=== PATIENT | female | born 1965 | race Caucasian/White ===

== ENCOUNTER 2020-06-13 00:37 | Inpatient (IN) | payer OTHER, MEDICAID ==
[~2020-06-13] VITALS: Ht 154.9 cm; Wt 76.2 kg
[2020-06-13 00:47] VITALS: BP 149/101
[2020-06-13 01:34] LABS: ABSOLUTE EOSINOPHILS 0.1 thou/uL (0.0-0.7); ABSOLUTE LYMPHOCYTES 0.8 thou/uL (0.8-5.3); ABSOLUTE MONOCYTES 0.3 thou/uL (0.0-1.2); ABSOLUTE NEUTROPHILS 2.4 thou/uL (1.6-8.1); BASOPHILS 0.5 %; EOSINOPHILS 1.8 %; HEMATOCRIT 32.8 % (37.0-47.0); LYMPHOCYTES 22.1 %; MCH 27.1 pg (26.0-34.0); MCHC 33.4 g/dL (28.0-37.0); MCV 81.1 fL (80.0-100.0); MONOCYTES 7.7 %; MPV 8.2 fl. (7.2-11.1); NUCLEATED RBCS 0 /100WBC; POLYS 67.9 %; RBC 4.05 mil/uL (4.20-5.00); RDW-CV 17.4 % (10.5-14.5); WBC 3.5 thou/uL (4.0-11.0)
[2020-06-13 01:38] LABS: PLATELET COUNT* 48 thou/uL (150-400)
[2020-06-13 01:42] LABS: URINE BILIRUBIN NEGATIVE (Negative); URINE BLOOD NEGATIVE (Negative); URINE CLARITY CLEAR; URINE COLOR YELLOW; URINE GLUCOSE-RANDOM 3+ (Negative); URINE KETONES NEGATIVE (Negative); URINE LEUKOCYTES-REFLEX NEGATIVE (Negative); URINE NITRITE-REFLEX NEGATIVE (Negative); URINE PROTEIN NEGATIVE (Negative); URINE SPECIFIC GRAVITY <= 1.005 (1.005-1.030); URINE UROBILINOGEN 0.2 E.U./dl (0.2-1.0)
[2020-06-13 01:46] LABS: CALCIUM 7.9 mg/dL (8.5-10.1); CREATININE 0.9 mg/dL (0.6-1.3)
[2020-06-13 01:47] LABS: INR 1.2; PROTIME 12.2 Seconds (9.20-11.50)
[2020-06-13 01:51] LABS: AMP/METHAMP Negative (Negative); BARBITURATES Negative (Negative); BENZODIAZEPINES POSITIVE (Negative); COCAINE Negative (Negative); METHADONE Negative (Negative); OPIATES POSITIVE (Negative); PCP Negative (Negative); THC Negative (Negative)
[2020-06-13 01:57] LABS: ALBUMIN 2.7 g/dL (3.4-5.0); TOTAL BILIRUBIN 0.6 mg/dL (<0.1-1.0); TOTAL PROTEIN 8.1 g/dL (6.4-8.2)
[2020-06-13] MEDS ORDERED: CYMBALTA60 MG PO (03:47)
[2020-06-13] MEDS ORDERED: SEROQUEL300 MG PO (03:47)
[2020-06-13] MEDS ORDERED: VALIUM10 MG PO (03:48)
[2020-06-13] MEDS ORDERED: AMBIEN 10 MG TA10 MG PO (03:48)
[2020-06-13] MEDS ORDERED: FLEXERIL PO (03:49)
[2020-06-13] MEDS ORDERED: DILAUDID PO ×2 (03:49→03:50)
[2020-06-13] MEDS ORDERED: REMERON15 M2 PO (03:50)
[2020-06-13] MEDS ORDERED: INSULIN (03:50)
[2020-06-13 05:20] VITALS: BP 117/69
[2020-06-13 06:00] VITALS: BP 110/54
[2020-06-13] MEDS ORDERED: LIDOCAINE HC28.35 GM (06:42)
--- NOTE | 2020-06-13 07:11 | NUR ---
Admit at 0555. She has multi abscesses on her bilat thighs and rt upper arm. Dr Longoria in ER lanced them and sent fluid specimens. She placed gauze wrap dressings on the wounds. She does have scabs and scars on bilat arms and legs. The botton of her feet were dark, like black in color. She said that it was dirt. She states that she does smoke cigarettes but doesn't drink or do any illegal drugs. Vitals were stable. She states that she lives with her and only wants him updated or called if there is an emergency. Meds were reconciled. ED MD called and order her NPO b/c CT scan showed bowel obstruction. Surgery consult called to Dr Garrison and he was notified of the consult.
[2020-06-13 07:35] VITALS: BP 110/90
[2020-06-13 16:00] VITALS: BP 140/59
--- NOTE | 2020-06-13 17:22 | NUR ---
PT REMAINED ALERT AND ORIENTED. PT REFUSED NG TUBE AND SUPPOSITORY. PT STATED THEY DID NOT WANT TO BATHE RIGHT NOW AND WOULD CALL OUT WHEN WANTING TO WASH UP. DRESSINGS CHANGED, WOUND CARE NURSE TO SEE TOMORROW. PICTURES IN CHART. PT HAD ONE BM THIS SHIFT. ABD DISTENDED AND PT C/O PAIN, MEDS GIVEN ORDERED. PT EDUCTAED ON AVOIDING NARCOTICS TO PREVENT BOWEL OBSTRUCTION TO GET WORSE, PT WOULD NOT LISTEN. PT STATES THEY DO NOT WANT THEIR HISTORY OF HEROIN USE TO BE GIVEN OUT, EDUCATED PT ON ONLY THOSE PERTINENT TO HER CARE WOULD KNOW TO HELP TREAT WOUNDS AND CONTINUE CARE. FALL RISK PRECAUTIONS IN PLACE. HOURLY ROUNDING COMPLETED. WILL CONTINUE TO MONITOR.
--- NOTE | 2020-06-13 19:19 | CON ---
[address] [address] CONSULTATION Name: BAUTISTA JIMÉNEZ Room: [address] IN .R.#: [id number] Admission: 06/13/20 Attend Phys: Hima Stinson Discharge: Date of : 63 Report #: [id number] THIS REPORT FOR: //name// cc: PATRICIA - No family physician/PCP PATRICIA - No family physician/PCP ~ THIS REPORT FOR: //name// CC: [facility] physician/PCP Hima Sotelo DICTATED BY: Rafaela Cortés TITLE EXAMINER DATE OF SERVICE: 06/13/2020 The patient has been seen at [facility] in the past and has not seen anyone for sometime. Please note at the time of this dictation, the patient was seen physically examined by myself. REASON FOR CONSULTATION: Cirrhosis of the liver. HISTORY OF PRESENT ILLNESS: This is a 54-year-old female who presented to the Emergency Room with wanting to have a wound check. She states that she fell a couple of weeks ago and was unable to get up. She said she drug herself through the yard giving her numerous abrasions. She was trying to clean them up by putting alcohol and now she has got some abscesses. They were spreading and got worse. The patient states that she went to [place] back in March for her heroin abuse and Dilaudid use. She gets pain. She sees the pain clinic doctor over in [place] in which she has been seeing on a regular basis, getting her pain medications for her back and knee pain. Prior to all of this, the patient states that she was taking large amounts of Tylenol and that is what they told her caused her liver disease. The patient states she has not used any heroin in over 3 weeks and she denies any alcohol abuse. She did state when she was at [facility] before, it sounds like they did a paracentesis and jodie off some fluid. She states she was not sent home on any diuretics or anything like that. She denies weight gain, but now she is having abdominal pain and her stomach feels bigger. The patient also states that she had a colonoscopy done at [facility] as well. We will need to obtain all of those records to help fill in the gaps in regarding to her history. The patient does not recall ever having an EGD and she denies any issues with acid reflux, but she does have some nausea and vomiting from time to time. ALLERGIES: NSAIDs, SEASONAL ALLERGIES, MELLARIL, BEE STINGS, AND THORAZINE. MEDICATIONS: From home include Cymbalta, Seroquel, Ambien, Valium, Flexeril, [place] [address] CONSULTATION Name: BAUTISTA JIMÉNEZ Room: [address] IN .R.#: [id number] Admission: 06/13/20 Attend Phys: Hima Stinson Discharge: Date of : 63 Report #: [id number] Dilaudid ER, Dilaudid, Remeron and she does do insulin. PAST MEDICAL HISTORY: Diabetes, COPD, cirrhosis, PTSD, bipolar, social anxiety. PAST SURGICAL HISTORY: Cholecystectomy. FAMILY HISTORY: Mother, breast cancer. SOCIAL HISTORY: She smokes 2 packs per day. Denies any alcohol use and no illegal drug use for the last 3 weeks and has only been heroin a couple of times. REVIEW OF SYSTEMS: Twelve-point review of systems is essentially negative except what is mentioned in the HPI. PHYSICAL EXAMINATION: VITAL SIGNS: Temperature 36.7, pulse 83, respirations 18, blood pressure 110/90. HEART: Regular rate and rhythm. LUNGS: Diminished with some expiratory wheezes. ABDOMEN: Distended, semi-firm with generalized tenderness noted throughout, multiple abrasions abscesses noted on the lower extremities bilaterally. IMAGING: CT shows cirrhosis, splenomegaly, proximal small bowel distended, questionable thickened, large amount of stool, questionable small-bowel obstruction. Abdominal x-ray revealed no abdominal obstruction, but a large amount of stool throughout her colon. LABORATORY DATA: Hemoglobin is 11, white count 3.5, and platelets 48. PT 12.2 and INR is 1.2. GFR is 65. Her LFTs are normal and lipase is normal. IMPRESSION: 1. Cirrhosis, etiology questionable, Tylenol abuse per patient. 2. Thrombocytopenia. 3. Abdominal pain. 4. Constipation. 5. Intermittent nausea and vomiting. 6. Long-term narcotic use. 7. History of heroin abuse. 8. Personal history of cervical cancer. 9. Family history of breast cancer. PLAN: 1. Ultrasound with Dopplers. 2. Medical records release from [facility], all regarding her colonoscopy and recent hospitalization. [address] [address] CONSULTATION Name: BAUTISTA JIMÉNEZ Room: [address] IN M.R.#: [id number] Admission: 06/13/20 Attend Phys: Hima Stinson Discharge: Date of : 63 Report #: [id number] 3. Dulcolax tablets, 4 tablets now. 4. Labs, acute hepatitis panel, EB, ASMA, AMA and AFP. 5. The patient will need an EGD secondary to cirrhosis to rule out esophageal varices. 6. The patient may possibly need based on being diabetic and appeared to have slow transient time that was noted on the CT. 7. Further recommendations to be made once the above have all been noted and Dr. Harkins has seen the patient later today. Thank you for allowing us to participate in this patient's care. Please do not hesitate to call with any questions in regard to this consult. <ELECTRONICALLY SIGNED> By: Remy Harkins DO 06/13/20 [id number] Harkins DO /nt
[2020-06-13 19:23] VITALS: BP 130/59
--- NOTE | 2020-06-13 19:50 | NUR ---
REFUSING TO TRANSFER TO TELE UNIT. DISCUSSED WHY IT IS IMPORTANT TO GO AND SHE REFUSED TRANSFER.
--- NOTE | 2020-06-13 20:07 | NUR ---
SENT A MESSAGE TO DR CHEN TO LET HER KNOW PATIENT REFUSES TRANSFER
--- NOTE | 2020-06-14 00:30 | NUR ---
Pt transferred to 221 @ 2205. Alert and oriented. Up ad yaima. New IV to [facility]. Pain meds given as ordered. Reassessment done prior to transfer. Will complete rest of interventions due tonight. Will continue to monitor.
--- NOTE | 2020-06-14 01:03 | NUR ---
Pt refused schld ativan. Pt also refused schld insulin, voicing that her Bg is less than 200 and so does not want to take any insulin. Will continue to monitor.
[2020-06-14 05:35] LABS: HEMATOCRIT 32.6 % (37.0-47.0); MCH 26.6 pg (26.0-34.0); MCHC 33.7 g/dL (28.0-37.0); MCV 78.9 fL (80.0-100.0); MPV 7.4 fl. (7.2-11.1); RBC 4.13 mil/uL (4.20-5.00); RDW-CV 17.3 % (10.5-14.5); WBC 3.2 thou/uL (4.0-11.0)
[2020-06-14 05:55] LABS: ALBUMIN 2.1 g/dL (3.4-5.0); CALCIUM 7.8 mg/dL (8.5-10.1); CREATININE 0.7 mg/dL (0.6-1.3); MAGNESIUM 1.5 mg/dL (1.8-2.4); POTASSIUM 3.8 mmol/L (3.5-5.1)
--- NOTE | 2020-06-14 06:17 | NUR ---
Pt slept well this shift. Pt refused shcld ativan and insulin for bg <200. PAin meds given x2 this shift. SR on the monitor. ISolation precaution for pending mrsa result. Call light within reach. Will continue to monitor.
[2020-06-14 07:08] LABS: HEPATITIS B SURFACE AG Negative (Negative)
[2020-06-14 07:20] VITALS: BP 164/94
--- NOTE | 2020-06-14 07:27 | CON ---
[address] [address] CONSULTATION Name: JESSYCHHAYASUNI Jacobo Room: [address] IN M.R.#: [id number] Admission: 06/13/20 Attend Phys: Hima Stinson Discharge: Date of : 63 Report #: [id number] THIS REPORT FOR: //name// cc: PATRICIA Christy family physician/PCP PATRICIA - Jaelyn family physician/PCP ~ THIS REPORT FOR: //name// CC: PATRICIA physician/PCP Hima Sotelo DATE OF SERVICE: 06/13/2020 INFECTIOUS DISEASE CONSULTATION ATTENDING PHYSICIAN: Dr. Day. REASON FOR EVALUATION: Multiple abscesses involving the bilateral lower extremities including the thighs primarily. HISTORY OF PRESENT ILLNESS: Chart reviewed, patient examined. This is a 54-year-old woman with known polysubstance abuse including narcotics, who has known history of diabetes mellitus, confirmed to have cirrhosis of the liver as well as some psychological disease, who says she fell in her yard roughly 3 weeks ago. She was unable to lift herself up. She dragged herself causing some abrasive injury. She treated the wounds with rubbing alcohol. She did manipulate them, became evident to her that it was increasingly inflamed, very painful. Does have a history of heroin abuse. This prompted her to relapse. She was evaluated in the Emergency Room, was found to have pancytopenia. Urinalysis was otherwise unremarkable. COVID testing was negative. Glucose was 399. Lactic acid was in normal range at 1.3. CT of the pelvis did confirm the cirrhosis with marked hepatosplenomegaly. No abscess or free air. She was dosed with ceftriaxone and vancomycin. ALLERGIES: LISTED TO NONSTEROIDALS, THORAZINE, MELLARIL. CURRENT MEDICATIONS: Include enoxaparin, mirtazapine, quetiapine, vancomycin, famotidine p.r.n., ondansetron, duloxetine, ceftriaxone, cyclobenzaprine, zolpidem, oxycodone. PAST MEDICAL HISTORY: As described above. Diabetes mellitus, COPD, cirrhosis, PTSD, bipolar, social anxiety, hepatitis C. SOCIAL HISTORY: Smokes 2 packs a day for the last 35 years. Heroin use historically. No ethanol. FAMILY HISTORY: [place] [address] CONSULTATION Name: BAUTISTA JIMÉNEZ Room: [address]#: [id number] Admission: 06/13/20 Attend Phys: Hima Stinson Discharge: Date of : 63 Report #: [id number] REVIEW OF SYSTEMS: As above. Denies significant changes in weight. She has had mild anorexia. Denies any fevers or chills. No GI related complaints, above her baseline. PHYSICAL EXAMINATION: GENERAL: She is chronically ill appearing, undernourished. VITAL SIGNS: Temperature 98, pulse 83, respirations 18, blood pressure is 110/90. SKIN: Warm, dry. No rashes. HEENT: Disheveled. Normocephalic. Extraocular muscles are intact. NECK: Supple. LUNGS: Diminished breath sounds overall. Few scattered crackles at the bases. HEART: Regular. I do not appreciate a murmur. ABDOMEN: Mildly obese, soft, nontender. EXTREMITIES: Bilateral thighs have multiple areas of superficial ulcerations and moderate degree of inflammation associated with them. There is some sanguineous type drainage. Distal has changes suggestive of venous stasis insufficiency with dermatitis, some moderate degree of edema overall. GENITALIA AND RECTAL: Deferred. LABORATORY DATA: CBC: White count of 3.5, H and H 11.0 and 32.8 and platelets of 48. Urinalysis unremarkable. COVID testing was negative. Urine drug screen positive for opioids and benzodiazepines. PT 12.2, INR 1.2. Electrolytes: Sodium 130, potassium 4.0, chloride 95, bicarbonate is 30, anion gap of 5, BUN and creatinine 7 and 0.9, glucose of 399. AST of 18, albumin of 2.7, total protein of 8.1. LFTs unremarkable. Estimated GFR of 65. Lactic acid of 1.3. Chest x-ray; interstitial lung markings suggest chronic scarring, mild vascular congestion potentially. No evidence of pleural effusions. CT scan as noted above. Hepatosplenomegaly, nodular surface of liver consistent with cirrhosis, marked portal vein prominence consistent with elevated portal hypertension. ASSESSMENT: Bilateral anterior thighs with multiple ulcers and abrased areas, likely secondarily infected. Certainly, she dragged herself across the lawn, this could be ____ gram negatives as well. We will continue combination therapy, wound care as prescribed. We will see how she does clinically over the course of next 24-48 hours. There are cultures pending of the blood and abscess. <ELECTRONICALLY SIGNED> By: Bladimir Jiménez MD 06/14/20 0727 [id number] Jiménez MD /nt
--- NOTE | 2020-06-14 10:53 | NUR ---
WOUND NURSE: PATIENT SEEN TO ADDRESS MULTIPLE ABSCESS ON BILATERAL THIGHS AND RIGHT UPPER ARM DUE TO INJECTING ILLICIT DRUGS. ALL WERE CLEANSED WITH WOUND CLEANSER AND GAUZE. ALL OPEN WOUNDS WERE PACKED WITH SILVERMED MOISTENED PLAIN PACKING RIBBOON AND THIGHS COVERED WITH ABD'S AND SECURED WITH TAPE. RIGHT UPPER ARM WAS COVERED WITH 4X4'S UNDER ABD, THEN WRAPPED WITH KERLEX AND SECURED WITH TAPE. THIS WAS TOLERATED WELL BY THE PATIENT. ALDA WAS PROVIDED INSTRUCTION REGARDING MANAGEMENT OF WOUNDS, MEASURES TO PROMOTE HEALING, AND SEEKING ATTENTION TO ADDRESS ILLICIT DRUG USE. PATIENT STATES SHE UNDERSTANDS.
[2020-06-14 12:00] VITALS: BP 170/94
--- NOTE | 2020-06-14 13:39 | NUR ---
WOUND NURSE: I CALLED DR. CHACON'S OFFICE REGARDING INTACT ABSCESS ON THE RIGHT DELTOID MEASURING APPROX 5 CM DIAMETER AND IS FEELS FLUCTUANT. AUTOMOTIVE SALESPERSON TOOK THE MESSSAGE. I PROVIDED MY CALL BACK PHONE NUMBER. I ASKED IF THEY COULD ADDRESS THIS SITE NEXT TIME THEY FOLLOW UP WITH THE PATIENT.
[2020-06-14 16:00] VITALS: BP 177/96
--- NOTE | 2020-06-14 16:06 | NUR ---
Pt lives at home with her . Pt has hx of substance abuse. Pt has cane. Pending dc planning, surgery to assess. SW to remain available to assist with safe dc planning if needs arise.
[2020-06-14 20:00] VITALS: BP 175/105
[2020-06-15] VITALS: BP 114/61; BP 157/83
--- NOTE | 2020-06-15 03:20 | NUR ---
PATIENT HAS REMAINED ALERT AND ORIENTED X 4 THROUGHOUT THE SHIFT AND RESTING AT INTERVALS ON HOURLY ROUNDS. UP INDEPENDENTLY IN THE ROOM TO BR. STATES HAS HAD LOOSE BM'S. HAS REUSED REGLAN THIS SHIFT. PAIN MEDICATION PER JAN. IV RESTARTED DUE TO INFILTRATION PREVIOUS SITE. REFUSING IV LORAZEPAM. ALSO REFUSING SLIDING SCALE INSULIN. DRESSINGS DRY AND INTACT TO RIGHT UPPER ARM AND BILAT THIGHS. IVF'S AND ANTIBIOTICS PER ORDER. SR ON THE MONITOR. VITALS WITH HYPERTENSION AND LOW-GRADE TEMPERATURE. PLEASANT AND CONVERSATIONAL. NO S/S WITHDRAWL. CONTACT ISOLATION FOR PENDING CULTURES. CONTINUE TO MONITOR.
[2020-06-15 04:00] VITALS: BP 157/90
[2020-06-15 04:33] LABS: HEMATOCRIT 29.8 % (37.0-47.0); HEMOGLOBIN 10.2 gm/dL (12.0-15.0); MCHC 34.1 g/dL (28.0-37.0); RBC 3.77 mil/uL (4.20-5.00); RDW-CV 17.2 % (10.5-14.5); WBC 2.6 thou/uL (4.0-11.0)
[2020-06-15 04:55] LABS: CALCIUM 7.6 mg/dL (8.5-10.1); CREATININE 0.9 mg/dL (0.6-1.3); MAGNESIUM 1.6 mg/dL (1.8-2.4); POTASSIUM 3.7 mmol/L (3.5-5.1); TOTAL BILIRUBIN 0.7 mg/dL (<0.1-1.0); TOTAL PROTEIN 6.7 g/dL (6.4-8.2)
--- NOTE | 2020-06-15 06:36 | NUR ---
CRITICAL PLATELETS RESULT TO PHYSICIAN. NO NEW ORDERS CURRENTLY. MAGNESIUM REPLACEMENT INITIATED. CONTINUE REFUSAL OF REGLAN DUE TO DIARRHEA. NO OTHER CHANGES FROM PREVIOUS ENTRY.
[2020-06-15 08:00] VITALS: BP 166/93
[2020-06-15 12:22] VITALS: BP 148/86
[2020-06-15 16:25] VITALS: BP 150/90
[2020-06-15 20:50] VITALS: BP 168/94
[2020-06-16] VITALS (7 sets, daily range): BP systolic 105–166; BP diastolic 67–97
--- NOTE | 2020-06-16 05:11 | NUR ---
PT SLEPT MOST OF SHIFT. ASSESSMENT DOCUMENTED. MEDS GIVEN PER E-MAR. NEW IV STARTED THIS SHIFT. PAIN MEDS GIVEN PER E-MAR WITH RELIEF. DRESSINGS REMAINED C/D/I. PT UP AD WATSON IN ROOM. WILL CONTINUE WITH PLAN OF CARE.
--- NOTE | 2020-06-16 15:16 | NUR ---
ASSUMED PT CARE AT 0730, PT RESTING IN BED, AOX4 AND C/O BACK AND KNEE PAIN, TREATED W/ PRN PAIN MEDS W/ NO RELIEF. PT CONTINUED TO C/O PAIN THROUGHOUT SHIFT, PAIN MEDS GIVEN CHARTED. PT WORKED W/ PT AND OT TODAY AND GOT CLEANED UP FOR THE MOST PART. PT GOAL IS TO HAVE DRESSINGS ON ABCESSES CHANGED AND WORK ON PAIN MANAGEMENT. AM ASSESSMENT CHARTED, MEDS PER MAR, HOURLY ROUNDING OBSERVED, PT UP AD WATSON, WILL CONTINUE POC.
--- NOTE | 2020-06-16 18:51 | NUR ---
NO ACUTE CHANGES THROUGHOUT SHIFT, DRESSINGS CHANGED TO BILAT OUTER THIGHS AND RT UPPER ARM, OPEN ABCESSES RE-PACKED SUGGESTED. PT WORKED W/ PT/OT TODAY AND GOT UP TO BATHROOM MULTIPLE TIMES. MEDS PER MAR, HOURLY ROUNDING OBSERVED, PT CONTINUED TO HAVE PAIN TREATED W/ PRN MEDS, WILL CONTINUE POC.
[2020-06-17 04:00] VITALS: BP 127/76
--- NOTE | 2020-06-17 04:40 | NUR ---
No acute event this shift. Pt complains of back pain. Meds given per jan. Antibiotic given as ordered. Hourly rounding. Will continue to monitor.
[2020-06-17 04:48] LABS: HEMATOCRIT 30.3 % (37.0-47.0); HEMOGLOBIN 10.3 gm/dL (12.0-15.0); MCH 27.2 pg (26.0-34.0); MCV 80.2 fL (80.0-100.0); MPV 8.4 fl. (7.2-11.1); RBC 3.78 mil/uL (4.20-5.00); RDW-CV 17.7 % (10.5-14.5)
[2020-06-17 05:13] LABS: WBC 1.7 thou/uL (4.0-11.0)
[2020-06-17 05:23] LABS: ALBUMIN 2.2 g/dL (3.4-5.0); CALCIUM 7.8 mg/dL (8.5-10.1); CREATININE 0.7 mg/dL (0.6-1.3); POTASSIUM 3.3 mmol/L (3.5-5.1); TOTAL BILIRUBIN 0.4 mg/dL (<0.1-1.0); TOTAL PROTEIN 6.7 g/dL (6.4-8.2)
[2020-06-17 08:00] VITALS: BP 126/84
--- NOTE | 2020-06-17 10:41 | NUR ---
ASSUMED PT CARE AT 0730, PT RESTING IN BED, AOX4 AND C/O BACK PAIN TREATED W/ PRN DILAUDID AND OXYCODONE. PT FREQUENTLY C/O PAIN AND FREQUENTLY REMINDED OF WHEN SHE CAN HAVE PAIN MEDS. PT POTASSIUM LOW THIS MORNING, 3.3, BEING REPLACED PER Matt'ANTONI PROTOCOL. PT GOAL IS POTASSIUM REPLACEMENT AND PAIN MANAGEMENT. AM ASSESSMENT CHARTED, MEDS PER MAR, HOURLY ROUNDING OBSERVED, PT UP AD WATSON, WILL CONTINUE POC.
[2020-06-17 12:16] VITALS: BP 128/75
[2020-06-17 14:07] LABS: ANA INTERPRETATION Negative (Negative)
--- NOTE | 2020-06-17 17:39 | NUR ---
NO ACUTE CHANGES THROUGHOUT SHIFT, PT HAD FURTHER C/O PAIN, TREATED W/ PRN OXYCODONE AND DILAUDID. PT REFUSED TO LET ME CHANGE DRESSINGS THIS MORNING AND WANTED TO WAIT UNTIL AFTER SHE HAD AFTERNOON DOSE OF DILAUDID, DRESSINGS NOTED TO HAVE MULTIPLE SOILED SPOTS FROM WOUND DRAINAGE. PT HAD POTASSIUM REPLACED AND RE-DRAW DONE, POTASSIUM WNL NOW. MEDS PER JAN, HOURLY ROUNDING OBSERVED, CALL LIGHT W/IN REACH, WILL CONTINUE POC.
[2020-06-17 19:35] VITALS: BP 136/83
[2020-06-18 00:30] VITALS: BP 130/64
--- NOTE | 2020-06-18 00:44 | NUR ---
ASSUMED CARE OF PT AT 1900. PT IS ALERT AND ORIENTED. VSS. PERRLA. PT REPORTS ONGOING PAIN. PT REQUESTING DILAUDID. PT HAS MULTIPLE WOUNDS FROM SHOOTING HEROIN INTO HER MUSCLES. PT ADMITS TO HEROIN ABUSE. PT IS SLEEPING QUIETLY IN BED. RESPIRATIONS ARE EVEN AND NONLABORED. WILL CONTINUE TO MONITOR PT.
[2020-06-18 07:30] VITALS: BP 140/86
[2020-06-18 16:00] VITALS: BP 106/71
[2020-06-18 20:10] VITALS: BP 153/81
[2020-06-19 04:30] VITALS: BP 146/86
[2020-06-19 06:12] LABS: CREATININE 0.9 mg/dL (0.6-1.3); MAGNESIUM 1.6 mg/dL (1.8-2.4); POTASSIUM 4.1 mmol/L (3.5-5.1)
[2020-06-19 07:30] VITALS: BP 124/75
[2020-06-19 15:21] LABS: INR 1.2; PROTIME 12.7 Seconds (9.20-11.50)
[2020-06-19 16:00] VITALS: BP 110/79
--- NOTE | 2020-06-19 19:13 | NUR ---
PATIENTS BROUGHT HER HOME PRESCRIPTION BOTTLE OF DILAUDID TODAY. PATIENT REPORTED THAT HER BOTTLE WAS EMPTY AND SHE WAS 'SHOWING THE DR HER DOSE OF DILAUDID' THE ENTIRE SCENARIO SEEMED OFF AND UNEASY AFTER THE PATIENTS SPOUSE LEFT. SECURITY AND CLINICAL NUTRITION MANAGER NOTIFIED. PATIENT WAS CONFRONTED ABOUT THE SUSPICIOUSNESS OF PAIN MEDICATION BEING BROUGHT IN BY HER AND STAFF PROCEEDED TO GO THROUGH HER BELONGINGS. HYDROCODONE WAS FOUND IN A MARKED 'ELIQUIS' BOTTLE AND TAKEN BY SECURITY.
[2020-06-19 19:40] VITALS: BP 138/83
[2020-06-19 23:55] VITALS: BP 121/79
--- NOTE | 2020-06-20 05:43 | NUR ---
PATIENT PROGRESSING TOWARDS GOALS: PAIN MANAGED WITH MEDICATION PER MAR AND RELAXATION TECHNIQUES. PATIENT OBSERVED SLEEPING MOST OF SHIFT. CALL LIGHT WITHIN REACH
[2020-06-20 05:45] LABS: HEMATOCRIT 29.9 % (37.0-47.0); MCH 26.8 pg (26.0-34.0); MCHC 33.4 g/dL (28.0-37.0); MCV 80.2 fL (80.0-100.0); MPV 8.1 fl. (7.2-11.1); RBC 3.73 mil/uL (4.20-5.00); RDW-CV 17.2 % (10.5-14.5)
[2020-06-20 06:06] LABS: ALBUMIN 2.5 g/dL (3.4-5.0); CALCIUM 7.8 mg/dL (8.5-10.1); MAGNESIUM 1.7 mg/dL (1.8-2.4); POTASSIUM 4.2 mmol/L (3.5-5.1); TOTAL BILIRUBIN 0.5 mg/dL (<0.1-1.0); TOTAL PROTEIN 7.5 g/dL (6.4-8.2)
[2020-06-20 06:07] LABS: WBC 1.7 thou/uL (4.0-11.0)
--- NOTE | 2020-06-20 06:21 | NUR ---
CRITICALLY LOW PLATELETS- ORDER ACKNOWLEDGED TO TRANSFUSE PLATELETS PER DR. WEIR. LAB CALLED BY THIS RN, LAB REPORTS THAT [facility] WILL BE READY IN APPROX ONE HOUR AND WILL CALL WHEN IT IS READY.
[2020-06-20 08:30] VITALS: BP 114/64
[2020-06-20 09:15] VITALS: BP 132/75; BP 140/70
--- NOTE | 2020-06-20 10:37 | NUR ---
DISCUSSED ADDICTION WITH PT. SHE STATES SHE REALIZES SHE HAS A PROBLEM BUT "NEEDS THE PILLS AND HEROIN TO GIVE ME ENERGY TO DO STUFF AROUND THE HOUSE". PT STATES SHE "SHOOTS IN THE MUSCLE NOT IV". THIS IS EVIDENCED BY VARIOUS HARDENED AREAS AND ABSCESSES UNDER THE SKIN. PT RECEPTIVE TO METHADONE TREATMENT. PT GIVEN INFORMATION ON METHADONE CLINICS IN THE AREA. SHE STATES SHE GOES TO DR GOLDBERG IN [place]
--- NOTE | 2020-06-20 11:30 | NUR ---
PT BACK FROM [facility]-SHE STATES THEY "DIDNT HAVE TO DO THE PARACENTESIS"
--- NOTE | 2020-06-20 11:32 | NUR ---
Pt continues on IV abx, not going to dc on IVs. SW spoke with RN who is going to talk with pt pain management doctor for continuation of care and RN providing pt with the detailed information for methadone clinic. SW to remain available to assist with any other dc planning needs if they arise, pt may not be appropriate for HH but will arrange if this changes.
[2020-06-20] MEDS ORDERED: NOVOLIN N100 UNIT/3 SUBQ (14:12)
--- NOTE | 2020-06-20 14:20 | NUR ---
CALLED PT'S PHARMACY TO VERIFY HOME DOSES OF DILAUDID THAT PT PROVIDED. PRESCRIBER IS DR LYNN IN [facility] . CALLED AND SPOKE TO DR LYNN'S OFFICE TO INFORM THEM OF PT'S HEROIN ABUSE PER DR WEIR REQUEST OVER THE WEEKEND. THE OFFICE ASKED FOR RECORDS TO BE FAXED FOR CONTINUTY OF CARE HE PRESCRIBES DILAUDID
[2020-06-20 16:07] VITALS: BP 132/81
--- NOTE | 2020-06-20 17:00 | NUR ---
PT UP IN ROOM WITH STEADY GAIT. PT OUT TO DESK FREQUENTLY ASKING FOR PAIN MEDS OR OTHER VARIOUS NEEDS. LIMITS SET WITH PT TO ANSWER CALL LIGHT. PAIN MEDS GIVEN ORDERED. INSTRUCTED PT THAT DR WILL NOT BE PAGED FOR ADDITIONAL PAIN MEDS IT HAS BEEN PREVIOUSLY DISCUSSED. WOUND CARE PERFORMED.
[2020-06-20 18:24] VITALS: BP 124/78
[2020-06-20 19:07] LABS: HCV QUANT BY PCR 2510000 IU/mL (())
[2020-06-20 22:05] VITALS: BP 133/87
--- NOTE | 2020-06-21 07:14 | NUR ---
PATIENT HAS SLEPT OFF AND ON DURING THE NIGHT. VSS ON RA. MEDICATIONS GIVEN ORDERED AND CHARTED. PATIENT AMBULATING OFF AND ON IN THE HALLS. DRESSINGS CHANGED. IV IN RIGHT HAND-SL. IV ABT GIVEN WITHOUT ANY ADVERSE SIDE EFFECTS NOTED. PATIENT INSTRUCTED TO USE CALL LIGHT WHEN NEEDING ASSISTANCE. HOURLY ROUNDS MADE. WILL CONTINUE WITH PLAN OF CARE AND NURSING TO MONITOR.
--- NOTE | 2020-06-21 09:13 | NUR ---
CM INFORMED THAT [facility] DIRECTOR MEDICARE SALES WILL COME TO THE HOSPITAL TO SEE AND ASSESS FOR HOSPICE. CM WILL REMAIN AVAILABLE TO ASSIST AND FOLLOW NEEDED.
[2020-06-21] MEDS ORDERED: SPIRONOLACTONE25 MG PO (12:15)
[2020-06-21] MEDS ORDERED: AUGMENTIN 875-1 EACH PO (12:18)
[2020-06-21] MEDS ORDERED: DILAUDID 2 MG TA2 MG PO (12:18)
[2020-06-21 13:27] VITALS: BP 133/87
[2020-06-21 14:49] VITALS: BP 133/87
--- NOTE | 2020-06-21 14:59 | NUR ---
PATIENT HAD ALL HER WOUND CARE DONE PRIOR TO DISCHARGE. SHE HAD ALL HER BELONGINGS RETURNED FROM SECURITY. I EXPLAINED ALL DISCHARGE INSTRUCTIONS TO PATIENT WENT OVER ALL MEDICATIONS AND PROVIDED A EDUCATIONAL HANDOUT ON HER NEW MEDICATION. I ALSO INSTRUCTED HER ON HER DIABETIC DIET AND TO WATCH THE SODIUM LEVEL IN HER FOODS AND NOT TO GO OVER 2 GRAMS OF SODIUM. SHE VERBALIZED UNDERSTANDING OF ALL DISCHARGE INSRUCTIONS. THE HOSPITAL PROVIDED HER WITH A CAB VOUCHER AND SOME CLOTHING TO WEAR HOME. I REMOVED HER IV WITH THE CANNULA INTACT. NO DISTRESS NOTED. AND SHE WAITED UNTIL AFTER HER 1425 DOSE OF DILAUDID BEFORE SHE WOULD LEAVE.
== END 2020-06-21 15:03 | disposition hospice, home (50) | DRG 854 ==
LOC: M.ERS 00:37 → M.TBA-ER 03:54 → M.2W 03:54 → M.ORTHSURG 03:54 → M.2W 20:30 → M.ORTHSURG 21:00 → M.2W 21:57 → M.ORTHSURG 06-20 17:55
PROVIDERS: Emergency Medicine; Internal Medicine; Nurse Practitioner Adult Health; ADMIT Family Medicine; ATTEND Internal Medicine
PROC: 0J9M0ZZ Drainage of Left Upper Leg Subcutaneous Tissue and Fascia, Open Approach (ICD-10-PCS; 2020-06-13)
PROC: 0J9L0ZZ Drainage of Right Upper Leg Subcutaneous Tissue and Fascia, Open Approach (ICD-10-PCS; 2020-06-13)
PROC: 0J9D0ZZ Drainage of Right Upper Arm Subcutaneous Tissue and Fascia, Open Approach (ICD-10-PCS; 2020-06-13)
PROC: 30233R1 Transfusion of Nonautologous Platelets into Peripheral Vein, Percutaneous Approach (ICD-10-PCS; principal; 2020-06-20)
DX: A41.9 Sepsis, unspecified organism (principal); E44.0 Moderate protein-calorie malnutrition; L03.116 Cellulitis of left lower limb; L03.115 Cellulitis of right lower limb; K56.600 Partial intestinal obstruction, unspecified as to cause; D61.818 Other pancytopenia; N17.9 Acute kidney failure, unspecified; K76.6 Portal hypertension; R18.8 Other ascites; K56.7 Ileus, unspecified; L02.413 Cutaneous abscess of right upper limb; L02.416 Cutaneous abscess of left lower limb; L02.415 Cutaneous abscess of right lower limb; L97.129 Non-pressure chronic ulcer of left thigh with unspecified severity; L97.119 Non-pressure chronic ulcer of right thigh with unspecified severity; F31.9 Bipolar disorder, unspecified; F43.10 Post-traumatic stress disorder, unspecified; F41.9 Anxiety disorder, unspecified; E11.65 Type 2 diabetes mellitus with hyperglycemia; F17.210 Nicotine dependence, cigarettes, uncomplicated; D69.6 Thrombocytopenia, unspecified; K74.69 Other cirrhosis of liver; G89.29 Other chronic pain; B19.20 Unspecified viral hepatitis C without hepatic coma; S70.312A Abrasion, left thigh, initial encounter; S70.311A Abrasion, right thigh, initial encounter; W19.XXXA Unspecified fall, initial encounter; J44.9 Chronic obstructive pulmonary disease, unspecified; F12.10 Cannabis abuse, uncomplicated; R16.2 Hepatomegaly with splenomegaly, not elsewhere classified; K72.90 Hepatic failure, unspecified without coma; B95.2 Enterococcus as the cause of diseases classified elsewhere; Y93.89 Activity, other specified; Y92.89 Other specified places as the place of occurrence of the external cause; Y99.8 Other external cause status; Z79.4 Long term (current) use of insulin; Z79.899 Other long term (current) drug therapy; Z88.8 Allergy status to other drugs, medicaments and biological substances; Z91.030 Bee allergy status; Z90.49 Acquired absence of other specified parts of digestive tract; Z85.41 Personal history of malignant neoplasm of cervix uteri; Z68.31 Body mass index [BMI] 31.0-31.9, adult; Z03.818 Encounter for observation for suspected exposure to other biological agents ruled out

== ENCOUNTER 2020-09-12 11:05 | Inpatient (IN) | payer OTHER, MEDICAID ==
[~2020-09-12] VITALS: Ht 154.9 cm; Wt 68.0 kg
--- NOTE | ~2020-09-12 | CON ---
[address] [address] CONSULTATION Name: BAUTISTA JIMÉNEZ Room: [address] IN .R.#: [id number] Admission: 09/12/20 Attend Phys: Tim Bolanos, Discharge: Date of : 63 Report #: [id number] THIS REPORT FOR: //name// cc: PATRICIA - No family physician/PCP PATRICIA - No family physician/PCP ~ THIS REPORT FOR: //name// DATE OF SERVICE: 09/13/2020 The patient does not have a PCP. Please note at the time of this dictation, the patient was seen and physically examined by myself. REASON FOR CONSULTATION: End-stage liver disease. HISTORY OF PRESENT ILLNESS: This is a 55-year-old homeless female that presents to the Emergency Room with ongoing right upper quadrant pain that has been increasing over the last several days. She states that her abdomen has gotten bigger and it has caused her more pain and a little bit of more shortness of breath. On CT, it shows minimal amount of ascites; however, it does show a very large 0.7 cm right adnexal mass. The patient has been to [facility] most recently for the same problem. She is wanting to get help to get a referral or admitted to a prison, so she can have a place to stay. The patient has not been using any insulin either for the last several weeks because she has not had any. Blood sugars on admission is 400-500. The patient also has been seeing someone at a pain center to help with her pain medications as well. ALLERGIES: NONSTEROIDALS. MELLARIL, SEASONAL ALLERGIES, THORAZINE AND BEE STINGS. MEDICATIONS: From home, she has been taking Lasix and some pain pills. 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 PAST SURGICAL HISTORY: Negative. FAMILY HISTORY: Noncontributory. SOCIAL HISTORY: The patient does admit to heroin use and has not used anything for the last 2 weeks. REVIEW OF SYSTEMS: Twelve-point review of systems is essentially negative except what [place] [address] CONSULTATION Name: BAUTISTA JIMÉNEZ Room: [address] IN [facility]#: [id number] Admission: 09/12/20 Attend Phys: Tim Bolanos, Discharge: Date of : 63 Report #: [id number] PHYSICAL EXAMINATION: VITAL SIGNS: Temperature 36.4, pulse 76, respirations 18, blood pressure 116/69. HEART: Regular rate and rhythm. LUNGS: Diminished, but clear. ABDOMEN: Very rotund, soft. Positive bowel sounds, with tenderness noted all on the right side. LABORATORY DATA: Hemoglobin 9.4, white count 2.2, platelets 37. Her LFTs are completely normal. GFR is 65. PT is 12.2, INR is 1.2. AFP back in June was 12.2. CT shows cirrhosis of the liver with small amount of ascites and some mesenteric stranding with some hepatosplenomegaly as well as an 8.7 cm right pelvic adnexal masses noted. IMPRESSION: 1. Cirrhosis secondary to hepatitis C virus, untreated. 2. Pancytopenia. 3. Right ovarian mass. 4. Uncontrolled diabetes. 5. Bipolar. 6. Homeless. PLAN: 1. EGD for surveillance of any varices. 2. AFP. 3. Pelvic ultrasound. 4. Further recommendations to be made once Dr. Patino sees the patient later today. Thank you for allowing us to participate in this patient's care. Please do not hesitate to call with any questions in regard to this consult. By: 1118 [id number] Patino MD /nt
--- NOTE | ~2020-09-12 | PROC ---
[address] [address] PROCEDURE REPORT Name: BAUTISTA JIMÉNEZ Room: [address] IN ..#: [id number] Admission: 09/12/20 Attend Phys: Tim Bolanos, Discharge: Date of : 63 Report #: [id number] THIS REPORT FOR: //name// cc: FAM - No family physician/PCP FAM - No family physician/PCP ~ THIS REPORT FOR: //name// For GI report, please see the Provation report in Perceptive 7 content. By: 1405Medical Records Staff JENNIFER /MAGDALENO
[~2020-09-12 11:05] MED LIST: AMBIEN 10 MG TA10 MG PO; AUGMENTIN 875-1 EACH PO; CYMBALTA60 MG PO; DILAUDID 2 MG TA2 MG PO; DILAUDID PO; FLEXERIL PO; INSULIN; LIDOCAINE HC28.35 GM; NOVOLIN N100 UNIT/3 SUBQ; REMERON15 M2 PO; SEROQUEL300 MG PO; SPIRONOLACTONE25 MG PO; VALIUM10 MG PO
[2020-09-12 11:10] VITALS: BP 157/100
[2020-09-12 11:51] LABS: ABSOLUTE LYMPHOCYTES 0.6 thou/uL (0.8-5.3); ABSOLUTE MONOCYTES 0.1 thou/uL (0.0-1.2); ABSOLUTE NEUTROPHILS 1.5 thou/uL (1.6-8.1); BASOPHILS 0.3 %; EOSINOPHILS 1.9 %; HEMATOCRIT 34.8 % (37.0-47.0); HEMOGLOBIN 11.6 gm/dL (12.0-15.0); LYMPHOCYTES 26.4 %; MCH 27.7 pg (26.0-34.0); MCHC 33.5 g/dL (28.0-37.0); MCV 82.7 fL (80.0-100.0); MONOCYTES 4.9 %; MPV 7.2 fl. (7.2-11.1); NUCLEATED RBCS 0 /100WBC; POLYS 66.5 %; RDW-CV 16.5 % (10.5-14.5); WBC 2.3 thou/uL (4.0-11.0)
[2020-09-12 11:54] LABS: PLATELET COUNT* 46 thou/uL (150-400)
[2020-09-12 12:01] LABS: INR 1.2; PROTIME 12.2 Seconds (9.20-11.50)
[2020-09-12 12:02] LABS: URINE BILIRUBIN NEGATIVE (Negative); URINE BLOOD NEGATIVE (Negative); URINE CLARITY CLEAR; URINE COLOR YELLOW; URINE GLUCOSE-RANDOM 2+ (Negative); URINE KETONES NEGATIVE (Negative); URINE LEUKOCYTES-REFLEX TRACE (Negative); URINE NITRITE-REFLEX NEGATIVE (Negative); URINE PROTEIN NEGATIVE (Negative); URINE UROBILINOGEN 0.2 E.U./dl (0.2-1.0)
[2020-09-12 12:04] LABS: ALBUMIN 2.8 g/dL (3.4-5.0); ALKALINE PHOSPHATASE 92 U/L (46-116); ANION GAP 5 mmol/L (7-16); BUN 5 mg/dL (7-18); CALCIUM 8.9 mg/dL (8.5-10.1); CHLORIDE 102 mmol/L (98-107); CO2 30 mmol/L (21-32); CREATININE 0.9 mg/dL (0.6-1.3); GLUCOSE 251 mg/dL (70-99); MAGNESIUM 1.4 mg/dL (1.8-2.4); POTASSIUM 4.4 mmol/L (3.5-5.1); SGOT 25 U/L (15-37); SGPT 36 U/L (30-65); SODIUM 137 mmol/L (136-145); TOTAL BILIRUBIN 0.6 mg/dL (<0.1-1.0); TOTAL PROTEIN 7.4 g/dL (6.4-8.2)
[2020-09-12 12:21] LABS: BACTERIA-REFLEX None Seen /HPF (None Seen); CASTS None Seen /LPF (None Seen); CRYSTALS None Seen /LPF (None Seen); MUCUS None Seen strn/LPF (None Seen); SQUAMOUS 4-10 Moderate /LPF (0-3); URINE RBC 0-2 Rare /HPF (0-2); URINE WBC-REFLEX 0-5 Rare /HPF (0-5)
[2020-09-12 12:24] LABS: BE 0.6 mmol/L (-2 to +3); PO2 101.5 mmHg (75.0-100.0); pH 7.524 (7.340-7.450)
[2020-09-12 13:34] LABS: AMP/METHAMP Negative (Negative); BARBITURATES Negative (Negative); BENZODIAZEPINES POSITIVE (Negative); COCAINE Negative (Negative); METHADONE Negative (Negative); OPIATES POSITIVE (Negative); PCP Negative (Negative); THC Negative (Negative)
[2020-09-12 14:49] VITALS: BP 159/76
[2020-09-12 15:48] VITALS: BP 169/107
[2020-09-12 15:56] LABS: CALCIUM 8.7 mg/dL (8.5-10.1); CREATININE 0.9 mg/dL (0.6-1.3); POTASSIUM 4.3 mmol/L (3.5-5.1)
[2020-09-12 15:59] LABS: PHOSPHORUS* 3.4 mg/dL (2.5-4.9)
[2020-09-12 20:00] VITALS: BP 156/100
[2020-09-13 03:06] LABS: GLYCOHEMOGLOBIN (HGB A1C) 8.1 % (4.8-5.6)
[2020-09-13 03:59] LABS: HEMATOCRIT 27.6 % (37.0-47.0); MCH 28.1 pg (26.0-34.0); MCV 82.6 fL (80.0-100.0); MPV 7.5 fl. (7.2-11.1); RBC 3.35 mil/uL (4.20-5.00); RDW-CV 16.3 % (10.5-14.5); WBC 2.2 thou/uL (4.0-11.0)
[2020-09-13 04:04] LABS: CALCIUM 7.8 mg/dL (8.5-10.1); CREATININE 0.9 mg/dL (0.6-1.3); MAGNESIUM 1.4 mg/dL (1.8-2.4); POTASSIUM 3.9 mmol/L (3.5-5.1)
[2020-09-13 04:20] LABS: HEMOGLOBIN 9.4 gm/dL (12.0-15.0)
[2020-09-13 07:50] VITALS: BP 116/69
[2020-09-13] MEDS ORDERED: LANTUS SUBQ (11:09)
[2020-09-13] MEDS ORDERED: INTERMEZZO3.5 MG PO (11:09)
[2020-09-13] MEDS ORDERED: DULOXETINE HCL60 MG PO (11:09)
[2020-09-13] MEDS ORDERED: FUROSEMIDE 20 M20 MG PO (11:10)
[2020-09-13] MEDS ORDERED: REGLAN 5 MG TAB5 MG PO (11:10)
[2020-09-13] MEDS ORDERED: FAMOTIDINE 20 M20 MG PO (11:10)
[2020-09-13] MEDS ORDERED: MIRTAZAPINE15 M2 PO (11:11)
[2020-09-13] MEDS ORDERED: SEROQUEL 25 MG25 MG PO (11:11)
[2020-09-13] MEDS ORDERED: METFORMIN HCL500 M3 PO (11:11)
[2020-09-13 16:00] VITALS: BP 132/69
[2020-09-13 22:20] VITALS: BP 117/83
[2020-09-14 03:31] VITALS: BP 130/66
[2020-09-14 05:30] LABS: HEMATOCRIT 27.5 % (37.0-47.0); HEMOGLOBIN 9.3 gm/dL (12.0-15.0); MCH 27.8 pg (26.0-34.0); MCHC 33.6 g/dL (28.0-37.0); MCV 82.6 fL (80.0-100.0); RBC 3.33 mil/uL (4.20-5.00); RDW-CV 16.4 % (10.5-14.5)
[2020-09-14 05:36] LABS: WBC 1.8 thou/uL (4.0-11.0)
[2020-09-14 05:44] LABS: CALCIUM 7.7 mg/dL (8.5-10.1); CREATININE 0.8 mg/dL (0.6-1.3); POTASSIUM 4.2 mmol/L (3.5-5.1)
[2020-09-14 07:30] VITALS: BP 132/82
[2020-09-14 13:10] VITALS: BP 109/52
[2020-09-14 17:16] VITALS: BP 131/91
[2020-09-14 21:00] VITALS: BP 126/74
[2020-09-15 04:04] LABS: HEMATOCRIT 27.9 % (37.0-47.0); HEMOGLOBIN 9.4 gm/dL (12.0-15.0); MCH 28.1 pg (26.0-34.0); MCHC 33.8 g/dL (28.0-37.0); MCV 83.1 fL (80.0-100.0); MPV 7.6 fl. (7.2-11.1); RBC 3.35 mil/uL (4.20-5.00)
[2020-09-15 04:22] LABS: WBC 1.5 thou/uL (4.0-11.0)
[2020-09-15 04:35] LABS: ALBUMIN 2.4 g/dL (3.4-5.0); CALCIUM 7.8 mg/dL (8.5-10.1); CREATININE 0.8 mg/dL (0.6-1.3); MAGNESIUM 1.5 mg/dL (1.8-2.4); POTASSIUM 4.1 mmol/L (3.5-5.1); TOTAL BILIRUBIN 0.5 mg/dL (<0.1-1.0); TOTAL PROTEIN 6.2 g/dL (6.4-8.2)
[2020-09-15 07:30] VITALS: BP 126/71
[2020-09-15 16:46] VITALS: BP 128/65
[2020-09-15 20:30] VITALS: BP 138/98
[2020-09-15 22:06] LABS: % SATURATION 15 % (20-39); IRON 48 ug/dL (50-175)
[2020-09-16 04:11] LABS: MCH 27.8 pg (26.0-34.0); MCHC 33.3 g/dL (28.0-37.0); MCV 83.5 fL (80.0-100.0); MPV 7.9 fl. (7.2-11.1); RBC 3.24 mil/uL (4.20-5.00); RDW-CV 16.5 % (10.5-14.5)
[2020-09-16 04:46] LABS: ALBUMIN 2.5 g/dL (3.4-5.0); CALCIUM 7.5 mg/dL (8.5-10.1); CREATININE 0.8 mg/dL (0.6-1.3); MAGNESIUM 1.4 mg/dL (1.8-2.4); POTASSIUM 4.1 mmol/L (3.5-5.1); TOTAL BILIRUBIN 0.5 mg/dL (<0.1-1.0); TOTAL PROTEIN 6.5 g/dL (6.4-8.2)
[2020-09-16 04:52] LABS: WBC 1.4 thou/uL (4.0-11.0)
[2020-09-16 07:25] VITALS: BP 126/81
[2020-09-16 16:00] VITALS: BP 131/82
[2020-09-16 20:29] VITALS: BP 131/84
[2020-09-17 03:51] LABS: HEMATOCRIT 26.6 % (37.0-47.0); MCH 28.1 pg (26.0-34.0); MCHC 33.9 g/dL (28.0-37.0); MCV 82.7 fL (80.0-100.0); MPV 8.2 fl. (7.2-11.1); RBC 3.21 mil/uL (4.20-5.00); RDW-CV 16.3 % (10.5-14.5)
[2020-09-17 03:58] LABS: CALCIUM 7.7 mg/dL (8.5-10.1); CREATININE 0.7 mg/dL (0.6-1.3); MAGNESIUM 1.5 mg/dL (1.8-2.4); POTASSIUM 3.9 mmol/L (3.5-5.1)
[2020-09-17 04:23] LABS: WBC 1.5 thou/uL (4.0-11.0)
[2020-09-17 07:30] VITALS: BP 143/78
[2020-09-17 16:24] VITALS: BP 140/87
[2020-09-17 20:32] VITALS: BP 132/90
[2020-09-18 04:53] LABS: HEMATOCRIT 29.6 % (37.0-47.0); HEMOGLOBIN 10.1 gm/dL (12.0-15.0); MCH 28.3 pg (26.0-34.0); MCV 83.2 fL (80.0-100.0); RBC 3.56 mil/uL (4.20-5.00); RDW-CV 16.3 % (10.5-14.5)
[2020-09-18 05:23] LABS: ALBUMIN 2.5 g/dL (3.4-5.0); CALCIUM 7.8 mg/dL (8.5-10.1); CREATININE 0.7 mg/dL (0.6-1.3); MAGNESIUM 1.6 mg/dL (1.8-2.4); POTASSIUM 4.1 mmol/L (3.5-5.1); TOTAL BILIRUBIN 0.4 mg/dL (<0.1-1.0); TOTAL PROTEIN 6.7 g/dL (6.4-8.2)
[2020-09-18 07:30] VITALS: BP 189/93
[2020-09-18 09:18] VITALS: BP 196/96
[2020-09-18 11:27] VITALS: BP 141/72
[2020-09-18 16:00] VITALS: BP 145/75
[2020-09-18 19:44] VITALS: BP 165/89
[2020-09-18 22:16] VITALS: BP 104/56
[2020-09-19 04:59] LABS: HEMATOCRIT 26.6 % (37.0-47.0); MCV 82.6 fL (80.0-100.0); MPV 8.7 fl. (7.2-11.1); RBC 3.22 mil/uL (4.20-5.00); RDW-CV 16.7 % (10.5-14.5)
[2020-09-19 05:05] LABS: WBC 1.7 thou/uL (4.0-11.0)
[2020-09-19 07:30] VITALS: BP 125/75
--- NOTE | 2020-09-19 12:06 | PATH ---
[address] [address] PATHOLOGY RPT PROCEDURE Name: LISSET VALENZUELA Room: [address] IN .R.#: [id number] Admission: 09/12/20 Date of : 63 Discharge: Report #: [id number] Path Case #: [id number] [facility] Accession Number: [id number] . 01 Material submitted: . esophagus - BIOPSY OF DISTAL ESOPHAGUS FOR AVERY'S. Modifiers: distal . 01 Clinician provided ICD-10: R10.11 D61.818 . 01 Clinical history: . END STAGE LIVER DISEASE WITH UNCONTROLLED DIABETIES . 02 Diagnosis: Biopsy distal esophagus: - Mild chronic esophagitis compatible with reflux. See comment. (ARABELLA:selam; 09/19/2020) MBR 09/19/2020 1024 Local . 02 Comment: No glandular/columnar mucosa is present. 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 02 Electronically signed: . Ayden Stoddard MD, Pathologist NPI- [id number] . 01 Gross description: . The specimen is received in formalin, labeled "Lisset Valenzuela, BX distal esophagus" and consists of a fragment of pink-chaney tissue measuring 0.4 x 0.3 cm which is entirely submitted in A1. (SDY; 09/16/2020) SYU/SYU 09/16/2020 1215 Local . 02 Pathologist provided ICD-10: K20.90 . 02 CPT . 819483 Specimen Comment: A courtesy copy of this report has been sent to [phone] Specimen Comment: [phone] Specimen Comment: Report sent to / DR ORTIZ Performed at: [address], [place] [id number] MD Bryant [place] MD Phone: [phone] [address] [address] PATHOLOGY RPT PROCEDURE Name: LISSET VALENZUELA Room: [address] IN [facility]#: [id number] Admission: 09/12/20 Date of : 63 Discharge: Report #: [id number] Path Case #: [id number] Performed at: [address] [facility] [address] [place], [place] [id number] MD Ayden Stoddard MD Phone: [phone]
[2020-09-19 15:42] VITALS: BP 128/74
[2020-09-19 20:18] VITALS: BP 118/96
[2020-09-20 08:02] VITALS: BP 92/53
[2020-09-20] MEDS ORDERED: ZESTRIL5 MG PO (09:03)
[2020-09-20] MEDS ORDERED: NEOMYCIN SULFA500 MG PO (09:03)
[2020-09-20] MEDS ORDERED: DILAUDID 2 MG TA2 MG PO (09:03)
[2020-09-20] MEDS ORDERED: REGLAN 5 MG TAB5 MG PO (09:03)
[2020-09-20] MEDS ORDERED: MS CONTIN30 MG PO (09:03)
[2020-09-20] MEDS ORDERED: FLEXERIL PO (09:03)
[2020-09-20] MEDS ORDERED: LORAZEPAM 1 MG T1 MG PO (09:03)
[2020-09-20] MEDS ORDERED: FLAGYL500 M1 PO (09:03)
[2020-09-20] MEDS ORDERED: PROTONIX40 M2 PO (09:03)
[2020-09-20] MEDS ORDERED: SEROQUEL 100 M100 M1 PO (09:03)
[2020-09-20 11:53] LABS: HEMATOCRIT 31.3 % (37.0-47.0); HEMOGLOBIN 10.2 gm/dL (12.0-15.0); MCH 27.4 pg (26.0-34.0); MCHC 32.6 g/dL (28.0-37.0); MCV 84.2 fL (80.0-100.0); MPV 7.9 fl. (7.2-11.1); NUCLEATED RBCS 0 /100WBC; RBC 3.72 mil/uL (4.20-5.00); RDW-CV 16.8 % (10.5-14.5)
[2020-09-20 11:55] LABS: PLATELET COUNT* 43 thou/uL (150-400); WBC 1.8 thou/uL (4.0-11.0)
[2020-09-20 12:25] LABS: ABSOLUTE EOSINOPHILS 0.1 thou/uL (0.0-0.7); ABSOLUTE LYMPHOCYTES 0.9 thou/uL (0.8-5.3); ABSOLUTE NEUTROPHILS 0.7 thou/uL (1.6-8.1); ATYPICAL LYMPHS 2 %; PLATELET ESTIMATE DECREASED
[2020-09-20 16:15] VITALS: BP 116/63
[2020-09-21 04:43] LABS: HEMATOCRIT 29.2 % (37.0-47.0); HEMOGLOBIN 9.6 gm/dL (12.0-15.0); MCH 27.2 pg (26.0-34.0); MCHC 32.7 g/dL (28.0-37.0); MCV 83.2 fL (80.0-100.0); MPV 7.1 fl. (7.2-11.1); RBC 3.51 mil/uL (4.20-5.00); RDW-CV 16.6 % (10.5-14.5)
[2020-09-21 04:59] LABS: WBC 1.7 thou/uL (4.0-11.0)
[2020-09-21 07:30] VITALS: BP 164/101
[2020-09-21 12:37] VITALS: BP 157/82
[2020-09-21 13:21] VITALS: BP 157/82
[2020-09-21 20:00] VITALS: BP 120/72
[2020-09-22 07:45] VITALS: BP 127/64
[2020-09-22] MEDS ORDERED: DILAUDID8 MG PO (08:23)
[2020-09-22] MEDS ORDERED: MS CONTIN30 MG PO (08:23)
[2020-09-22 09:26] VITALS: BP 157/82
== END 2020-09-22 09:00 | disposition home or self-care (01) | DRG 392 ==
LOC: M.ERS 11:05 → M.ORTHSURG 13:30 → M.TBA-ER 13:30 → M.ORTHSURG 15:21
PROVIDERS: Internal Medicine; Internal Medicine Hematology & Oncology; Personal Emergency Response Attendant; ADMIT Family Medicine; ATTEND Family Medicine
PROC: 0DB38ZX Excision of Lower Esophagus, Via Natural or Artificial Opening Endoscopic, Diagnostic (ICD-10-PCS; principal; 2020-09-14)
PROC: 0D758ZZ Dilation of Esophagus, Via Natural or Artificial Opening Endoscopic (ICD-10-PCS; principal; 2020-09-14)
DX: K22.2 Esophageal obstruction (principal); L03.116 Cellulitis of left lower limb; A04.9 Bacterial intestinal infection, unspecified; K76.6 Portal hypertension; D61.818 Other pancytopenia; F11.20 Opioid dependence, uncomplicated; E44.0 Moderate protein-calorie malnutrition; L03.115 Cellulitis of right lower limb; K74.69 Other cirrhosis of liver; J44.9 Chronic obstructive pulmonary disease, unspecified; F31.9 Bipolar disorder, unspecified; F41.9 Anxiety disorder, unspecified; E11.65 Type 2 diabetes mellitus with hyperglycemia; B19.20 Unspecified viral hepatitis C without hepatic coma; F17.210 Nicotine dependence, cigarettes, uncomplicated; F43.10 Post-traumatic stress disorder, unspecified; J84.89 Other specified interstitial pulmonary diseases; G89.29 Other chronic pain; E83.42 Hypomagnesemia; Z20.828 Contact with and (suspected) exposure to other viral communicable diseases; K31.89 Other diseases of stomach and duodenum; D70.9 Neutropenia, unspecified; Z86.19 Personal history of other infectious and parasitic diseases; Z88.8 Allergy status to other drugs, medicaments and biological substances; Z59.0 Homelessness; Z68.28 Body mass index [BMI] 28.0-28.9, adult; Z79.899 Other long term (current) drug therapy

== ENCOUNTER 2020-09-29 16:44 | Emergency (ER) | payer OTHER, MEDICAID ==
[~2020-09-29] VITALS: Ht 154.9 cm; Wt 68.0 kg
[~2020-09-29 16:44] MED LIST changes: +DILAUDID8 MG PO; +DULOXETINE HCL60 MG PO; +FAMOTIDINE 20 M20 MG PO; +FLAGYL500 M1 PO; +FUROSEMIDE 20 M20 MG PO; +INTERMEZZO3.5 MG PO; +LANTUS SUBQ; +LORAZEPAM 1 MG T1 MG PO; +METFORMIN HCL500 M3 PO; +MIRTAZAPINE15 M2 PO; +MS CONTIN30 MG PO; +NEOMYCIN SULFA500 MG PO; +PROTONIX40 M2 PO; +REGLAN 5 MG TAB5 MG PO; +SEROQUEL 100 M100 M1 PO; +SEROQUEL 25 MG25 MG PO; +ZESTRIL5 MG PO
[2020-09-29 17:21] LABS: ABSOLUTE LYMPHOCYTES 0.4 thou/uL (0.8-5.3); ABSOLUTE MONOCYTES 0.1 thou/uL (0.0-1.2); ABSOLUTE NEUTROPHILS 1.9 thou/uL (1.6-8.1); BASOPHILS 0.3 %; EOSINOPHILS 0.7 %; HEMATOCRIT 34.6 % (37.0-47.0); HEMOGLOBIN 11.3 gm/dL (12.0-15.0); LYMPHOCYTES 17.8 %; MCH 27.2 pg (26.0-34.0); MCHC 32.8 g/dL (28.0-37.0); MCV 82.9 fL (80.0-100.0); MONOCYTES 4.5 %; MPV 7.4 fl. (7.2-11.1); NUCLEATED RBCS 0 /100WBC; PLATELET COUNT* 62 thou/uL (150-400); POLYS 76.7 %; RBC 4.17 mil/uL (4.20-5.00); RDW-CV 16.1 % (10.5-14.5); WBC 2.5 thou/uL (4.0-11.0)
[2020-09-29 17:30] LABS: URINE BILIRUBIN NEGATIVE (Negative); URINE BLOOD NEGATIVE (Negative); URINE CLARITY CLEAR; URINE COLOR YELLOW; URINE GLUCOSE-RANDOM TRACE (Negative); URINE KETONES NEGATIVE (Negative); URINE LEUKOCYTES-REFLEX NEGATIVE (Negative); URINE NITRITE-REFLEX NEGATIVE (Negative); URINE PROTEIN TRACE (Negative); URINE UROBILINOGEN 0.2 E.U./dl (0.2-1.0)
[2020-09-29 17:31] LABS: CALCIUM 8.7 mg/dL (8.5-10.1); CREATININE 0.8 mg/dL (0.6-1.3); POTASSIUM 3.9 mmol/L (3.5-5.1)
[2020-09-29] MEDS ORDERED: MS CONTIN30 MG PO (17:31)
[2020-09-29 17:35] LABS: ALBUMIN 2.7 g/dL (3.4-5.0); TOTAL BILIRUBIN 0.7 mg/dL (<0.1-1.0); TOTAL PROTEIN 7.9 g/dL (6.4-8.2)
[2020-09-29 17:40] VITALS: BP 174/98
--- NOTE | 2020-09-30 09:48 | EKG ---
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: [facility]- : 1965 Requested By: Rui Neely Order Number: [id number] MD: Carlos Simental Measurements Intervals [place] Rate: 90 P: -14 TN: 158 QRS: 7 QRSD: 88 T: 44 QT: 361 QTc: 442 Interpretive Statements Sinus rhythm Minimal ST elevation, anterior leads, normal variant No previous ECG available for comparison Electronically Signed On 09-30-2020 9:48:16 CDT by Carlos Simental [email or web address] <ELECTRONICALLY SIGNED> By: Carlos Simental MD, [facility] 09/30/20 0948 1703 170 Carlos Simental MD, [facility] /EPI
== END 2020-09-29 17:35 | disposition home or self-care (01) ==
LOC: M.ERS 16:44
PROVIDERS: Family Medicine
DX: G89.29 Other chronic pain (principal); Z76.0 Encounter for issue of repeat prescription; E11.9 Type 2 diabetes mellitus without complications; J44.9 Chronic obstructive pulmonary disease, unspecified; Z79.899 Other long term (current) drug therapy; Z79.4 Long term (current) use of insulin; Z91.030 Bee allergy status; Z88.8 Allergy status to other drugs, medicaments and biological substances; Z88.6 Allergy status to analgesic agent

== ENCOUNTER 2020-12-07 21:03 | Observation (INO) | payer OTHER, MEDICAID ==
[~2020-12-07] VITALS: Ht 154.9 cm; Wt 76.7 kg
--- NOTE | ~2020-12-07 | EMS ---
[address] [address] EMS Patient Care Report Name: BAUTISTA JIMÉNEZ Room: [facility]#: [id number] Admission: 12/07/20 Attend Phys: Discharge: Date of : 63 Report #: [id number] THIS REPORT FOR: //name// Report Transmitted: 12/07/2020 21:35 EMS Care Summary [place] [employer] [facility] Incident [id number] @ 12/07/2020 20:20 Incident Location [address] [place] [address] Patient BAUTISTA JIMÉNEZ Female, 55 Years 1965 Patient Address [address] [place] [address] Patient History End Stage Renal Disease (ESRD),Liver Failure, Patient Allergies No known allergies, Patient Medications Insulin, Chief Complaint Abdominal pain Disposition Transported No Lights/[place] Dispatch Reason Abdominal Pain/Problems Transported To [facility] Narrative Med 1 was dispatched to a local residence for abdominal pain. Med 1 responded emergent from and was on scene with Utility 1. On arrival to scene, patient was a 55 sitting on the couch in the living room. Patient stated that she was [address] [address] EMS Patient Care Report Name: BAUTISTA JIMÉNEZ Room: [facility]#: [id number] Admission: 12/07/20 Attend Phys: Discharge: Date of : 63 Report #: [id number] in pain from her end stage liver failure and was having green stools. Patient stated that her symptoms had become worse over the week, and tonight it became unbearable. Patient also stated that she believed her "blood was infected." Patient displayed her abdomen that had extreme distension and 2 quarter sized wounds that had yellow pus and were red and irritated. Patient was able to ambulate to the cot with assistance and was secured with all straps. On assessment of patient, airway was open and patent with equal non labored rise and fall of chest, skin was pink, warm and dry. A strong pulse was palpated on the left radial. Patient was alert and oriented by 4 with a GCS of 15. Once in the ambulance all vitals were monitored en route. A 4 lead was performed that displayed a sinus rhythm with PVC's. Patient was hypertensive and hyperglycemic. Patient had extensive bilateral scar tissue to the AC area and IV access was withheld. Patient remained in stable condition and was transported non emergent to [place] ER bed 4. Patient was able to ambulate with assistance to the hospital bed and care was transferred to nurse in charge. Med 1 cleared and was back in service. End of report Alexandra Valadez [address] Initial Vitals @20:36P: 96,SpO2: 100,[place] Suspected: false @20:36P: 91,R: 16,BP: 184/105,Pain: 8/10,GCS: 15,SpO2: 100,Revised Trauma: 12, @20:36P: 82,R: 16,BP: 185/104,Pain: 7/10,GCS: 15,Temp: 98.6F,Glucose: 261,SpO2: 99,Revised Trauma: 12, Assessments @20:32MENTAL:Person Oriented,Place Oriented,Time Oriented,Event Oriented,SKIN:HEENT:Head/Face: No Abnormalities,Neck/Airway: No Abnormalities,LUNG SOUNDS:General: Diarrhea,Right Upper: Other,General: Other,Right Upper: Tenderness,Left Lower: Tenderness,Left Upper: Guarding,Left Upper: Other,Right Upper: Guarding,Left Lower: Guarding,Left Lower: Distension,Left Upper: Distension,Right Upper: Distension,Left Upper: Tenderness,Right Lower: Guarding,Right Lower: Distension,Right Lower: Other,Right Lower: Tenderness,Left Lower: Other,ABDOMEN:General: Diarrhea,Right Upper: Other,General: Other,Right Upper: Tenderness,Left Lower: Tenderness,Left Upper: Guarding,Left Upper: Other,Right Upper: Guarding,Left Lower: Guarding,Left Lower: Distension,Left Upper: Distension,Right Upper: Distension,Left Upper: Tenderness,Right Lower: Guarding,Right Lower: Distension,Right Lower: Other,Right Lower: Tenderness,Left Lower: Other,PELVIS//GI:No Abnormalities,EXTREMITIES:Left Leg: Edema,Right Leg: Edema,Left Arm: No Abnormalities,Right Arm: No Abnormalities,PULSE:Radial: 2+ [place] [address] EMS Patient Care Report Name: BAUTISTA JIMÉNEZ Room: [facility]#: [id number] Admission: 12/07/20 Attend Phys: Discharge: Date of : 63 Report #: [id number] Normal,NEURO:No Abnormalities, Impression Abdominal Pain Procedures @20:31ALS AssessmentResponse: UnchangedSucceeded Timeline 20:20,Call Received 20:20,Dispatched 20:23,En Route 20:27,Initial Responder On Scene 20:27,On Scene 20:30,At Patient 20:31,ALS Assessment,Response: UnchangedSucceeded, 20:36,BP: / M,PULSE: 96,RR: R,SPO2: 100 Ox,ETCO2: ,BG: ,PAIN: ,GCS: , 20:36,BP: 184/105 M,PULSE: 91,RR: 16 R,SPO2: 100 Ox,ETCO2: ,BG: ,PAIN: 8,GCS: 15, 20:36,BP: 185/104 M,PULSE: 82,RR: 16 R,SPO2: 99 Ox,ETCO2: ,B,PAIN: 7,GCS: 15, 20:39,Depart Scene 20:59,At Destination 21:00,Transfer Patient 21:49,Call Closed 21:49,In District Disclaimer v1.1 Copyright 2020 [employer] This EMS Care Summary contains data elements from the applicable legal record (which may be displayed differently). It is designed to provide pertinent information for the following purposes: continuity of care, clinical quality, and state data reporting. The complete legal record is available to ED staff and administrators of the receiving hospital in [employer]'s Patient Tracker. All data is provided "as is."
[2020-12-07 21:07] VITALS: BP 171/96
[2020-12-07 22:21] LABS: ABSOLUTE EOSINOPHILS 0.1 thou/uL (0.0-0.7); ABSOLUTE MONOCYTES 0.2 thou/uL (0.0-1.2); ABSOLUTE NEUTROPHILS 2.7 thou/uL (1.6-8.1); BASOPHILS 0.4 %; EOSINOPHILS 1.4 %; HEMOGLOBIN 11.5 gm/dL (12.0-15.0); LYMPHOCYTES 25.4 %; MCH 25.8 pg (26.0-34.0); MCHC 32.7 g/dL (28.0-37.0); MCV 78.9 fL (80.0-100.0); MONOCYTES 5.7 %; MPV 8.1 fl. (7.2-11.1); NUCLEATED RBCS 0 /100WBC; PLATELET COUNT* 65 thou/uL (150-400); POLYS 67.1 %; RBC 4.43 mil/uL (4.20-5.00); RDW-CV 18.8 % (10.5-14.5)
[2020-12-07 22:27] LABS: INR 1.2; PROTIME 12.3 Seconds (9.20-11.50)
[2020-12-07 22:34] LABS: CALCIUM 8.2 mg/dL (8.5-10.1); CREATININE 0.8 mg/dL (0.6-1.3); POTASSIUM 3.8 mmol/L (3.5-5.1)
[2020-12-07 22:45] LABS: ALBUMIN 2.5 g/dL (3.4-5.0); MAGNESIUM 1.8 mg/dL (1.8-2.4); TOTAL BILIRUBIN 0.6 mg/dL (<0.1-1.0); TOTAL PROTEIN 7.5 g/dL (6.4-8.2)
[2020-12-07 23:39] LABS: URINE BILIRUBIN NEGATIVE (Negative); URINE BLOOD 1+ (Negative); URINE CLARITY CLEAR; URINE COLOR YELLOW; URINE GLUCOSE-RANDOM 3+ (Negative); URINE KETONES NEGATIVE (Negative); URINE LEUKOCYTES-REFLEX NEGATIVE (Negative); URINE NITRITE-REFLEX NEGATIVE (Negative); URINE PROTEIN NEGATIVE (Negative); URINE UROBILINOGEN 0.2 E.U./dl (0.2-1.0)
[2020-12-08 00:04] LABS: BACTERIA-REFLEX >30 Many /HPF (None Seen); CASTS None Seen /LPF (None Seen); CRYSTALS None Seen /LPF (None Seen); MUCUS 0-3 Light strn/LPF (None Seen); SQUAMOUS 0-3 Few /LPF (0-3); TRANSITIONAL EPITHEL CELL 0-3 Few /LPF (None Seen); URINE WBC-REFLEX 0-5 Rare /HPF (0-5)
[2020-12-08 02:30] VITALS: BP 173/89
[2020-12-08 02:42] VITALS: BP 171/96
[2020-12-08 09:05] VITALS: BP 172/82
--- NOTE | 2020-12-08 12:44 | EKG ---
[place] [address] ELECTROCARDIOGRAM REPORT Name: BAUTISTA JIMÉNEZ Room: [address]#: [id number] Admission: 12/08/20 Attend Phys: Noel Alberto, Discharge: Date of : 63 Date of Service: 12/07/20 220 Report #: [id number] THIS REPORT FOR: //name// [facility] ED Test Date: 2020-12-07 Test Time: 22:09:11 Pat Name: BAUTISTA JIMÉNEZ Department: Room: [facility] Gender: F Bottom Worker: MARIA LUISA PLASCENCIAB: 1965 Requested By: Marni Longoria Order Number: [id number] MD: Willie Hardy Measurements Intervals [place] Rate: 80 P: -29 MD: 177 QRS: -2 QRSD: 70 T: 36 QT: 355 QTc: 410 Interpretive Statements Sinus rhythm Abnormal R-wave progression, early transition Compared to ECG 09/29/2020 17:03:59 ST (T wave) deviation no longer present Electronically Signed On 12-08-2020 12:44:25 CLAY ARTIST by Willie Hardy [email or web address] <ELECTRONICALLY SIGNED> By: Willie Hardy MD, FACC 12/08/20 1244 08 08 Willie Hardy MD, FACC /EPI
[2020-12-08 16:43] VITALS: BP 157/88
[2020-12-08 20:25] VITALS: BP 156/97
[2020-12-09 08:00] VITALS: BP 164/94
[2020-12-09 13:56] VITALS: BP 164/94
[2020-12-09 13:57] VITALS: BP 164/94
[2020-12-09 14:00] VITALS: BP 174/94
[2020-12-09] MEDS ORDERED: VIBRAMYCIN 100100 M2 PO (14:03)
[2020-12-09] MEDS ORDERED: MUPIROCIN22 GM TOP (14:03)
[2020-12-09 16:44] VITALS: BP 164/94
[2020-12-09 17:02] VITALS: BP 164/94
[2020-12-09] MEDS ORDERED: SEROQUEL400 MG PO (18:43)
[2020-12-09] MEDS ORDERED: MS CONTIN30 MG PO ×2 (18:45→19:04)
== END 2020-12-09 20:10 | disposition home or self-care (01) ==
LOC: M.ERS 21:03 → M.3W 12-08 00:42 → M.TBA-ER 12-08 00:42 → M.3W 12-08 02:28
PROVIDERS: Emergency Medicine; ADMIT Internal Medicine; ATTEND Internal Medicine
DX: L02.416 Cutaneous abscess of left lower limb (principal); L02.415 Cutaneous abscess of right lower limb; E11.9 Type 2 diabetes mellitus without complications; J44.9 Chronic obstructive pulmonary disease, unspecified; K74.60 Unspecified cirrhosis of liver; F43.10 Post-traumatic stress disorder, unspecified; F31.9 Bipolar disorder, unspecified; F41.9 Anxiety disorder, unspecified; D72.819 Decreased white blood cell count, unspecified; Z79.899 Other long term (current) drug therapy; Z20.828 Contact with and (suspected) exposure to other viral communicable diseases; Z79.4 Long term (current) use of insulin

== ENCOUNTER 2021-04-21 12:47 | Inpatient (IN) | payer OTHER, MEDICAID ==
[~2021-04-21] VITALS: Ht 154.9 cm; Wt 79.8 kg
--- NOTE | ~2021-04-21 | EMS ---
[address] [place] [address] EMS Patient Care Report Name: BAUTISTA JIMÉNEZ Room: [address] IN [facility]#: [id number] Admission: 04/21/21 Attend Phys: Pari Dunahm Discharge: Date of : 63 Report #: [id number] THIS REPORT FOR: //name// Report Transmitted: 04/21/2021 17:04 EMS Care Summary [place] [employer] [facility] Incident [id number] @ 04/21/2021 12:03 Incident Location [address] [place] [address] Patient BAUITSTA JIMÉNEZ Female, 55 Years 1965 Patient Address [address] [place] [address] Patient History Cardiac Arrythmia,Chronic Obstructive Pulmonary Disease (COPD),Diabetes,Liver Cancer,Cirrhosis of Liver,Hepatitis C (Without Hepatic Coma),IV Drug Use/Abuse,Anemia, Patient Allergies Penicillin allergy, Patient Medications Mirtazapine, Seroquel, Cymbalta, Morphine, Diazepam, Ambien, Dilaudid, Chief Complaint lightheadedness Disposition Transported No Lights/[place] Dispatch Reason Breathing Problem Transported To [facility] Narrative [address] [address] EMS Patient Care Report Name: BAUTISTA JIMÉNEZ Room: [address] IN [facility]#: [id number] Admission: 04/21/21 Attend Phys: Pari Dunham Discharge: Date of : 63 Report #: [id number] [facility] 2 was dispatched for a 55 year old female conscious and breathing. Med 2 responds to the scene urgently. Arrival at the scene patient is located inside the residence sitting down on the couch. Patient acknowledges EMS presence is GCS 15, AAOx4. Patient denies any chest pain or shortness of breath. Patient advises that she feeling dizzy and weaker than normal. Patient advises that she has not been compliant with her medication or insulin for the past 3 weeks due to not having any more syringes. Patient than admits that she used her last syringes to administer heroine for the past 2 weeks. Patient advises that she would like to go to [facility] for further evaluation. Patient is assisted to the stretcher and secured in the fowlers position using seatbelts and rails. Patient is wheeled to the ambulance and placed on the monitor to obtain VS and ECG. Glucose check is obtained and results are 442mg/dl. IV access is established in the right antecubital region using a 20 gauge IV and secured with a venigard. 10 ML NS is flushed, 600ml NS is administered IVP. Transport is initiated. Assessment is conducted Patient is GCS 15,AAOx4. Patient is hemodynamically stable. Arrival at the receiving facility patient is offloaded and taken to ED room 15. Patient is moved from the stretcher to the bed using the linen. RN is given report and signatures are obtained. Transfer of care is completed and Med 2 returns to service. Initial Vitals @12:25P: 104,R: 18,BP: 130/70,Pain: 2/10,GCS: 15,Glucose: -2,SpO2: 99,Revised Trauma: 12,[place] Suspected: false @12:35P: 102,R: 20,BP: 130/70,GCS: 15,SpO2: 96,Revised Trauma: 12,[place] Suspected: false Assessments @12:45MENTAL:No Abnormalities,SKIN:No Abnormalities,HEENT:Head/Face: No Abnormalities,Eyes: No Abnormalities,Neck/Airway: No Abnormalities,LUNG SOUNDS:General: No Abnormalities,Left Upper: No Abnormalities,Right Upper: No Abnormalities,Left Lower: No Abnormalities,Right Lower: No Abnormalities,ABDOMEN:General: No Abnormalities,Left Upper: No Abnormalities,Right Upper: No Abnormalities,Left Lower: No Abnormalities,Right Lower: No Abnormalities,PELVIS//GI:No Abnormalities,EXTREMITIES:Left Arm: No Abnormalities,Right Arm: No Abnormalities,Left Leg: No Abnormalities,Right Leg: No Abnormalities,PULSE:NEURO:No Abnormalities, Impression Diabetic Hyperglycemia Procedures @12:15ALS AssessmentResponse: UnchangedSucceeded@12:25Normal Saline (.9% NaCl) [place] [address] EMS Patient Care Report Name: BAUTISTA JIMÉNEZ Room: [address] IN M.R.#: [id number] Admission: 04/21/21 Attend Phys: Pari Dunham Discharge: Date of : 63 Report #: [id number] 500cc (20 ga) Site: Antecubital-RightResponse: UnchangedSucceeded@12:25Saline Lock 10cc (20 ga) Site: Antecubital-RightResponse: UnchangedSucceeded Timeline 12:03,Call Received 12:03,Dispatched 12:04,En Route 12:07,Initial Responder On Scene 12:07,On Scene 12:08,At Patient 12:15,ALS Assessment,Response: UnchangedSucceeded, 12:22,Depart Scene 12:25,Normal Saline (.9% NaCl) 500cc 20 ga Site: Antecubital-Right,Response: UnchangedSucceeded, 12:25,Saline Lock 10cc 20 ga Site: Antecubital-Right,Response: UnchangedSucceeded, 12:25,BP: 130/70 M,PULSE: 104,RR: 18 R,SPO2: 99 Ox,ETCO2: ,BG: -2,PAIN: 2,GCS: 15, 12:35,BP: 130/70 M,PULSE: 102,RR: 20 R,SPO2: 96 Ox,ETCO2: ,BG: ,PAIN: ,GCS: 15, 12:45,At Destination 12:50,Transfer Patient 13:17,Call Closed 13:17,In District Disclaimer v1.1 Copyright 2020 [email or web address] This EMS Care Summary contains data elements from the applicable legal record (which may be displayed differently). It is designed to provide pertinent information for the following purposes: continuity of care, clinical quality, and state data reporting. The complete legal record is available to ED staff and administrators of the receiving hospital in [employer]'s Patient Tracker. All data is provided "as is."
--- NOTE | ~2021-04-21 | EMS ---
[address] [address] EMS Patient Care Report Name: BAUTISTA JIMÉNEZ Room: [address] IN [facility]#: [id number] Admission: 04/21/21 Attend Phys: Pari Dunham Discharge: Date of : 63 Report #: [id number] THIS REPORT FOR: //name// Report Transmitted: 04/23/2021 13:35 EMS Care Summary [place] [employer] [facility] Incident [id number] @ 04/21/2021 12:03 Incident Location [address] [place] [address] Patient BAUTISTA JIMÉNEZ Female, 55 Years 1965 Patient Address [address] [place] [address] Patient History Cardiac Arrythmia,Chronic Obstructive Pulmonary Disease (COPD),Diabetes,Liver Cancer,Cirrhosis of Liver,Hepatitis C (Without Hepatic Coma),IV Drug Use/Abuse,Anemia, Patient Allergies Penicillin allergy, Patient Medications Mirtazapine, Seroquel, Cymbalta, Morphine, Diazepam, Ambien, Dilaudid, Chief Complaint lightheadedness Disposition Transported No Lights/[place] Dispatch Reason Breathing Problem Transported To [facility] [place] [address] EMS Patient Care Report Name: BAUTISTA JIMÉNEZ Room: [address] IN [facility]#: [id number] Admission: 04/21/21 Attend Phys: Pari Dunham Discharge: Date of : 63 Report #: [id number] [facility] 2 was dispatched for a 55 year old female conscious and breathing. Med 2 responds to the scene urgently. Arrival at the scene patient is located inside the residence sitting down on the couch. Patient acknowledges EMS presence is GCS 15, AAOx4. Patient denies any chest pain or shortness of breath. Patient advises that she feeling dizzy and weaker than normal. Patient advises that she has not been compliant with her medication or insulin for the past 3 weeks due to not having any more syringes. Patient than admits that she used her last syringes to administer heroine for the past 2 weeks. Patient advises that she would like to go to [facility] for further evaluation. Patient is assisted to the stretcher and secured in the fowlers position using seatbelts and rails. Patient is wheeled to the ambulance and placed on the monitor to obtain VS and ECG. Glucose check is obtained and results are 442mg/dl. IV access is established in the right antecubital region using a 20 gauge IV and secured with a venigard. 10 ML NS is flushed, 600ml NS is administered IVP. Transport is initiated. Assessment is conducted Patient is GCS 15,AAOx4. Patient is hemodynamically stable. Arrival at the receiving facility patient is offloaded and taken to ED room 15. Patient is moved from the stretcher to the bed using the linen. RN is given report and signatures are obtained. Transfer of care is completed and Med 2 returns to service. Initial Vitals @12:25P: 104,R: 18,BP: 130/70,Pain: 2/10,GCS: 15,Glucose: -2,SpO2: 99,Revised Trauma: 12,PR Suspected: false @12:35P: 102,R: 20,BP: 130/70,GCS: 15,SpO2: 96,Revised Trauma: 12,PR Suspected: false Assessments @12:45MENTAL:No Abnormalities,SKIN:No Abnormalities,HEENT:Head/Face: No Abnormalities,Eyes: No Abnormalities,Neck/Airway: No Abnormalities,LUNG SOUNDS:General: No Abnormalities,Left Upper: No Abnormalities,Right Upper: No Abnormalities,Left Lower: No Abnormalities,Right Lower: No Abnormalities,ABDOMEN:General: No Abnormalities,Left Upper: No Abnormalities,Right Upper: No Abnormalities,Left Lower: No Abnormalities,Right Lower: No Abnormalities,PELVIS//GI:No Abnormalities,EXTREMITIES:Left Arm: No Abnormalities,Right Arm: No Abnormalities,Left Leg: No Abnormalities,Right Leg: No Abnormalities,PULSE:NEURO:No Abnormalities, Impression Diabetic Hyperglycemia Procedures @12:15ALS AssessmentResponse: UnchangedSucceeded@12:25Normal Saline (.9% NaCl) [place] [address] EMS Patient Care Report Name: CHHAYA JIMÉNEZSUNI Jacobo Room: [address] IN [facility]#: [id number] Admission: 04/21/21 Attend Phys: Pari Dunham Discharge: Date of : 63 Report #: [id number] 500cc (20 ga) Site: Antecubital-RightResponse: UnchangedSucceeded@12:25Saline Lock 10cc (20 ga) Site: Antecubital-RightResponse: UnchangedSucceeded Timeline 12:03,Call Received 12:03,Dispatched 12:04,En Route 12:07,Initial Responder On Scene 12:07,On Scene 12:08,At Patient 12:15,ALS Assessment,Response: UnchangedSucceeded, 12:22,Depart Scene 12:25,Normal Saline (.9% NaCl) 500cc 20 ga Site: Antecubital-Right,Response: UnchangedSucceeded, 12:25,Saline Lock 10cc 20 ga Site: Antecubital-Right,Response: UnchangedSucceeded, 12:25,BP: 130/70 M,PULSE: 104,RR: 18 R,SPO2: 99 Ox,ETCO2: ,BG: -2,PAIN: 2,GCS: 15, 12:35,BP: 130/70 M,PULSE: 102,RR: 20 R,SPO2: 96 Ox,ETCO2: ,BG: ,PAIN: ,GCS: 15, 12:45,At Destination 12:50,Transfer Patient 13:17,Call Closed 13:17,In District Disclaimer v1.1 Copyright 2020 [facility] This EMS Care Summary contains data elements from the applicable legal record (which may be displayed differently). It is designed to provide pertinent information for the following purposes: continuity of care, clinical quality, and state data reporting. The complete legal record is available to ED staff and administrators of the receiving hospital in [employer]'s Patient Tracker. All data is provided "as is."
[~2021-04-21 12:47] MED LIST changes: +MUPIROCIN22 GM TOP; +SEROQUEL400 MG PO; +VIBRAMYCIN 100100 M2 PO
[2021-04-21 12:54] VITALS: BP 130/62
[2021-04-21] MEDS ORDERED: DIAZEPAM 10 MG10 M1 PO (13:06)
[2021-04-21] MEDS ORDERED: REMERON15 M2 PO (13:08)
[2021-04-21 13:22] LABS: HEMOGLOBIN 9.7 gm/dL (12.0-15.0); MCH 26.7 pg (26.0-34.0); MCHC 32.4 g/dL (28.0-37.0); MCV 82.5 fL (80.0-100.0); MPV 7.4 fl. (7.2-11.1); NUCLEATED RBCS 0 /100WBC; RBC 3.63 mil/uL (4.20-5.00); RDW-CV 17.2 % (10.5-14.5); WBC 4.5 thou/uL (4.0-11.0)
[2021-04-21 13:23] LABS: URINE BILIRUBIN NEGATIVE (Negative); URINE BLOOD NEGATIVE (Negative); URINE CLARITY CLEAR; URINE COLOR YELLOW; URINE GLUCOSE-RANDOM 2+ (Negative); URINE KETONES NEGATIVE (Negative); URINE LEUKOCYTES-REFLEX NEGATIVE (Negative); URINE NITRITE-REFLEX NEGATIVE (Negative); URINE PROTEIN NEGATIVE (Negative); URINE UROBILINOGEN 0.2 E.U./dl (0.2-1.0)
[2021-04-21 13:27] LABS: CALCIUM 7.4 mg/dL (8.5-10.1); CREATININE 1.1 mg/dL (0.6-1.3); PLATELET COUNT* 38 thou/uL (150-400); POTASSIUM 4.2 mmol/L (3.5-5.1)
[2021-04-21 13:31] LABS: APTT 34.2 Seconds (25.0-31.3); INR 1.6; PROTIME 16.7 Seconds (9.20-11.50)
[2021-04-21 13:39] LABS: ALBUMIN 1.9 g/dL (3.4-5.0); TOTAL BILIRUBIN 1.6 mg/dL (<0.1-1.0); TOTAL PROTEIN 6.9 g/dL (6.4-8.2)
[2021-04-21 13:48] LABS: ABSOLUTE LYMPHOCYTES 0.5 thou/uL (0.8-5.3); PLATELET ESTIMATE DECREASED
--- NOTE | 2021-04-21 16:01 | EKG ---
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
[2021-04-21 17:43] VITALS: BP 135/69
[2021-04-21 18:20] VITALS: BP 126/73
[2021-04-21] MEDS ORDERED: SEROQUEL400 MG PO (19:31)
[2021-04-21] MEDS ORDERED: PROTONIX40 M2 PO (19:33)
[2021-04-21] MEDS ORDERED: REGLAN 5 MG TAB5 MG PO (19:33)
[2021-04-21] MEDS ORDERED: MS CONTIN 30 MG30 MG PO (19:34)
[2021-04-21] MEDS ORDERED: DILAUDID8 MG PO (19:54)
[2021-04-21] MEDS ORDERED: LIDOCAINE HC28.35 GM TOP (19:58)
[2021-04-21] MEDS ORDERED: HUMALOG100 UNIT/1 SUBQ (19:59)
[2021-04-21] MEDS ORDERED: INTERMEZZO3.5 MG PO (20:03)
[2021-04-21 20:39] VITALS: BP 148/82
[2021-04-22 01:19] VITALS: BP 141/76
[2021-04-22 04:53] VITALS: BP 119/64
[2021-04-22 12:00] VITALS: BP 120/64
[2021-04-22 20:00] VITALS: BP 114/79
[2021-04-23 05:39] VITALS: BP 113/62
[2021-04-23 07:05] LABS: ABSOLUTE LYMPHOCYTES 0.8 thou/uL (0.8-5.3); ABSOLUTE MONOCYTES 0.3 thou/uL (0.0-1.2); ABSOLUTE NEUTROPHILS 2.9 thou/uL (1.6-8.1); BASOPHILS 0.3 %; EOSINOPHILS 0.7 %; HEMATOCRIT 25.6 % (37.0-47.0); HEMOGLOBIN 8.5 gm/dL (12.0-15.0); MCH 26.4 pg (26.0-34.0); MCHC 33.2 g/dL (28.0-37.0); MCV 79.4 fL (80.0-100.0); MONOCYTES 7.6 %; MPV 7.5 fl. (7.2-11.1); NUCLEATED RBCS 0 /100WBC; PLATELET COUNT* 52 thou/uL (150-400); POLYS 71.4 %; RBC 3.23 mil/uL (4.20-5.00); RDW-CV 17.3 % (10.5-14.5)
[2021-04-23 07:11] LABS: ALBUMIN 1.6 g/dL (3.4-5.0); CALCIUM 7.3 mg/dL (8.5-10.1); CREATININE 0.9 mg/dL (0.6-1.3); POTASSIUM 4.5 mmol/L (3.5-5.1); TOTAL BILIRUBIN 1.9 mg/dL (<0.1-1.0); TOTAL PROTEIN 6.1 g/dL (6.4-8.2)
[2021-04-23 08:00] VITALS: BP 118/67
[2021-04-23 12:51] VITALS: BP 115/70
[2021-04-23 17:30] VITALS: BP 138/74
[2021-04-23 20:00] VITALS: BP 125/63
[2021-04-24 00:03] VITALS: BP 123/71
[2021-04-24 04:11] VITALS: BP 155/83
[2021-04-24 05:50] LABS: ABSOLUTE LYMPHOCYTES 0.6 thou/uL (0.8-5.3); ABSOLUTE MONOCYTES 0.4 thou/uL (0.0-1.2); ABSOLUTE NEUTROPHILS 2.2 thou/uL (1.6-8.1); BASOPHILS 0.4 %; EOSINOPHILS 0.9 %; HEMATOCRIT 25.7 % (37.0-47.0); HEMOGLOBIN 8.5 gm/dL (12.0-15.0); LYMPHOCYTES 17.9 %; MCH 26.5 pg (26.0-34.0); MCHC 33.2 g/dL (28.0-37.0); MCV 79.8 fL (80.0-100.0); MONOCYTES 11.7 %; MPV 7.9 fl. (7.2-11.1); NUCLEATED RBCS 0 /100WBC; PLATELET COUNT* 51 thou/uL (150-400); POLYS 69.1 %; RBC 3.22 mil/uL (4.20-5.00); RDW-CV 17.1 % (10.5-14.5); WBC 3.2 thou/uL (4.0-11.0)
[2021-04-24 05:54] LABS: CALCIUM 7.3 mg/dL (8.5-10.1); CREATININE 0.8 mg/dL (0.6-1.3); POTASSIUM 4.4 mmol/L (3.5-5.1)
[2021-04-24 08:25] VITALS: BP 134/64
[2021-04-24 12:20] VITALS: BP 134/70
[2021-04-24 20:00] VITALS: BP 143/72
[2021-04-24 23:46] VITALS: BP 158/70
[2021-04-25 03:57] VITALS: BP 128/74
[2021-04-25 04:49] LABS: CALCIUM 7.3 mg/dL (8.5-10.1); CREATININE 0.8 mg/dL (0.6-1.3); POTASSIUM 3.8 mmol/L (3.5-5.1)
[2021-04-25 04:53] LABS: INR 1.7; PROTIME 17.2 Seconds (9.20-11.50)
[2021-04-25 05:03] LABS: HEMATOCRIT 23.2 % (37.0-47.0); HEMOGLOBIN 7.8 gm/dL (12.0-15.0); MCH 26.1 pg (26.0-34.0); MCHC 33.6 g/dL (28.0-37.0); MCV 77.7 fL (80.0-100.0); MPV 7.2 fl. (7.2-11.1); RBC 2.99 mil/uL (4.20-5.00); WBC 3.5 thou/uL (4.0-11.0)
[2021-04-25 08:29] VITALS: BP 120/96
[2021-04-25 12:29] VITALS: BP 133/70
[2021-04-25] MEDS ORDERED: ANECREAM5 GM TOP (17:24)
[2021-04-25] MEDS ORDERED: VIBRAMYCIN 100100 M2 PO (17:24)
[2021-04-25 17:26] VITALS: BP 119/72
[2021-04-25] MEDS ORDERED: MS CONTIN 30 MG30 MG PO (17:33)
[2021-04-25] MEDS ORDERED: DILAUDID8 MG PO (17:33)
[2021-04-25 18:37] VITALS: BP 119/72
[2021-04-25 19:38] VITALS: BP 119/72
[2021-04-26 18:06] LABS: HIV-1/HIV-2 ANTIBODY Non Reactive (Non Reactive)
== END 2021-04-25 18:50 | disposition hospice, home (50) | DRG 602 ==
LOC: M.ERS 12:47 → M.2W 14:50 → M.TBA-ER 14:50 → M.2W 17:45
PROVIDERS: Family Medicine; Internal Medicine; ADMIT Internal Medicine; ATTEND Internal Medicine
DX: L03.311 Cellulitis of abdominal wall (principal); E43 Unspecified severe protein-calorie malnutrition; E87.2 Acidosis; E87.1 Hypo-osmolality and hyponatremia; R65.10 Systemic inflammatory response syndrome (SIRS) of non-infectious origin without acute organ dysfunction; R18.8 Other ascites; L02.416 Cutaneous abscess of left lower limb; L02.415 Cutaneous abscess of right lower limb; K72.90 Hepatic failure, unspecified without coma; L02.211 Cutaneous abscess of abdominal wall; J44.9 Chronic obstructive pulmonary disease, unspecified; K74.60 Unspecified cirrhosis of liver; F43.10 Post-traumatic stress disorder, unspecified; F31.9 Bipolar disorder, unspecified; F41.9 Anxiety disorder, unspecified; F17.210 Nicotine dependence, cigarettes, uncomplicated; E11.22 Type 2 diabetes mellitus with diabetic chronic kidney disease; D72.829 Elevated white blood cell count, unspecified; D64.9 Anemia, unspecified; N18.9 Chronic kidney disease, unspecified; Z66 Do not resuscitate; Z51.5 Encounter for palliative care; Z20.822 Contact with and (suspected) exposure to COVID-19; Z79.899 Other long term (current) drug therapy; Z88.8 Allergy status to other drugs, medicaments and biological substances; Z91.030 Bee allergy status; Z79.4 Long term (current) use of insulin; Z68.33 Body mass index [BMI] 33.0-33.9, adult

== ENCOUNTER 2021-08-07 04:45 | Emergency (ER) | payer OTHER, MEDICAID ==
[~2021-08-07] VITALS: Ht 154.9 cm; Wt 73.9 kg
--- NOTE | ~2021-08-07 | EMS ---
[facility] [address] [place] [address] EMS Patient Care Report Name: BAUTISTA JIMÉNEZ Room: [facility]#: [id number] Admission: 08/07/21 Attend Phys: Discharge: 08/07/21 Date of : 63 Report #: [id number] THIS REPORT FOR: //name// Report Transmitted: 08/07/2021 06:10 EMS Care Summary [facility] Incident [id number] @ 08/07/2021 04:13 Incident Location [address] [place] [address] Patient BAUTISTA JIMÉNEZ Female, 55 Years 1965 Patient Address [address] [place] [address] Patient History Chronic Obstructive Pulmonary Disease (COPD),Liver Failure,Bipolar II Disorder,Methicillin-resistant Staphylococcus aureus (MRSA), Patient Allergies No known allergies, Chief Complaint Liver Failure on Hospice Disposition Transported No Lights/[place] Dispatch Reason Abdominal Pain/Problems Transported To [facility] Narrative Med 1 was dispatched for a [age] year-old female c/o liver failure and is on hospice care. Upon arrival, patient was sitting in her living room smoking a cigarette the whole house was full of cigarette smoke the patient grabbed her [facility] [address] [place] [address] EMS Patient Care Report Name: BAUTISTA JIMÉNEZ Room: [facility]#: [id number] Admission: 08/07/21 Attend Phys: Discharge: 08/07/21 Date of : 63 Report #: [id number] bag she had ready and walked to the stretcher that was set up outside of the front door. Patient was secured via seatbelts and moved to the ambulance without incident. The patient said," I told the lady on the phone this wasn't an emergency this has been going on for months. I figured you all wouldn't be busy right now." Patient was moved to the ambulance without incident. Med 1 went en route to [facility]. Patient's vitals were obtained and patient reported they always have a hard time getting an IV on me and have to use an Ultrasound. So no IV access was attempted. Patient did report that she has MRSA on her abdomen and she did have tenderness in her abdomen. She reported that her nurse that comes to the house has been watching it but it is not going away so she thought she would go to the hospital today. Patient's vitals were monitored throughout transport. Hospital report was given via radio with no questions or orders received or requested. Med 1 arrived at the hospital. Patient was moved into the ER room 4. Patient report was given to ER nurse and patient care was transferred to ER nurse. Med 1 returned back into service. [id number] KShook Initial Vitals @04:20P: 84,BP: 154/90,GCS: 15,Glucose: 197,SpO2: 96, @04:40P: 86,R: 20,BP: 152/88,GCS: 15,SpO2: 98,Revised Trauma: 12, Impression Abdominal Pain Timeline 04:13,Call Received 04:13,Dispatched 04:14,En Route 04:16,On Scene 04:17,At Patient 04:20,BP: 154/90 M,PULSE: 84,RR: R,SPO2: 96 Ox,ETCO2: ,B,PAIN: ,GCS: 15, 04:23,Depart Scene 04:40,BP: 152/88 M,PULSE: 86,RR: 20 R,SPO2: 98 Ox,ETCO2: ,BG: ,PAIN: ,GCS: 15, 04:41,At Destination 05:12,Call Closed 05:12,[place] [address] EMS Patient Care Report Name: CHHAYA JIMÉNEZSUNI Donnell Room: [facility]#: [id number] Admission: 08/07/21 Attend Phys: Discharge: 08/07/21 Date of : 63 Report #: [id number] v1.1 Copyright 2020 [employer] This EMS Care Summary contains data elements from the applicable legal record (which may be displayed differently). It is designed to provide pertinent information for the following purposes: continuity of care, clinical quality, and state data reporting. The complete legal record is available to ED staff and administrators of the receiving hospital in [employer]'s Patient Tracker. All data is provided "as is."
[~2021-08-07 04:45] MED LIST changes: +ANECREAM5 GM TOP; +DIAZEPAM 10 MG10 M1 PO; +HUMALOG100 UNIT/1 SUBQ; +LIDOCAINE HC28.35 GM TOP; +MS CONTIN 30 MG30 MG PO
[2021-08-07 05:30] LABS: HEMOGLOBIN 10.1 gm/dL (12.0-15.0); MCH 25.2 pg (26.0-34.0); MCHC 32.4 g/dL (28.0-37.0); MCV 77.6 fL (80.0-100.0); MPV 8.1 fl. (7.2-11.1); RDW-CV 19.9 % (10.5-14.5); WBC 5.2 thou/uL (4.0-11.0)
[2021-08-07 05:35] LABS: URINE BILIRUBIN NEGATIVE (Negative); URINE BLOOD 1+ (Negative); URINE CLARITY CLEAR; URINE COLOR YELLOW; URINE GLUCOSE-RANDOM 3+ (Negative); URINE KETONES NEGATIVE (Negative); URINE LEUKOCYTES-REFLEX NEGATIVE (Negative); URINE NITRITE-REFLEX NEGATIVE (Negative); URINE PROTEIN NEGATIVE (Negative); URINE SPECIFIC GRAVITY <= 1.005 (1.005-1.030); URINE UROBILINOGEN 0.2 E.U./dl (0.2-1.0)
[2021-08-07 05:38] LABS: CALCIUM 7.8 mg/dL (8.5-10.1); CREATININE 0.9 mg/dL (0.6-1.3); POTASSIUM 4.3 mmol/L (3.5-5.1)
[2021-08-07 05:43] LABS: AMP/METHAMP Negative (Negative); BARBITURATES Negative (Negative); BENZODIAZEPINES Negative (Negative); COCAINE Negative (Negative); METHADONE Negative (Negative); OPIATES POSITIVE (Negative); PCP Negative (Negative); THC Negative (Negative)
[2021-08-07 05:43] LABS: ALBUMIN 2.1 g/dL (3.4-5.0); TOTAL BILIRUBIN 0.9 mg/dL (<0.1-1.0); TOTAL PROTEIN 8.3 g/dL (6.4-8.2)
[2021-08-07] MEDS ORDERED: BACTRIM DS TAB1 EACH PO (05:56)
[2021-08-07 06:05] LABS: SQUAMOUS 0-3 Few /LPF (0-3); URINE WBC-REFLEX 0-5 Rare /HPF (0-5)
[2021-08-07 06:06] LABS: CASTS None Seen /LPF (None Seen); CRYSTALS None Seen /LPF (None Seen); MUCUS 4-6 Moderate strn/LPF (None Seen); URINE RBC 3-10 Few /HPF (0-2)
[2021-08-07 06:58] VITALS: BP 169/76
== END 2021-08-07 07:00 | disposition home or self-care (01) ==
LOC: M.ERS 04:45
PROVIDERS: Personal Emergency Response Attendant
DX: K72.90 Hepatic failure, unspecified without coma (principal); L02.416 Cutaneous abscess of left lower limb; L02.415 Cutaneous abscess of right lower limb; L02.31 Cutaneous abscess of buttock; R18.8 Other ascites; D69.6 Thrombocytopenia, unspecified; F17.210 Nicotine dependence, cigarettes, uncomplicated; E11.9 Type 2 diabetes mellitus without complications; J44.9 Chronic obstructive pulmonary disease, unspecified; F31.9 Bipolar disorder, unspecified; Z79.899 Other long term (current) drug therapy; Z79.2 Long term (current) use of antibiotics; Z91.030 Bee allergy status; Z88.8 Allergy status to other drugs, medicaments and biological substances; Z91.048 Other nonmedicinal substance allergy status

== ENCOUNTER 2021-09-14 16:15 | Emergency (ER) | payer OTHER, MEDICAID ==
[~2021-09-14] VITALS: Ht 154.9 cm; Wt 66.2 kg
[~2021-09-14 16:15] MED LIST changes: +BACTRIM DS TAB1 EACH PO
[2021-09-14 17:49] VITALS: BP 120/66
--- NOTE | 2021-09-15 09:53 | EKG ---
[place] [address] ELECTROCARDIOGRAM REPORT Name: BAUTISTA JIMÉNEZ Room: [facility]#: [id number] Admission: 09/14/21 Attend Phys: Discharge: 09/14/21 Date of : 63 Date of Service: 09/14/211711 Report #: [id number] THIS REPORT FOR: //name// 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 09/15/21 0953 11 11 Herbie Bro MD, [facility] /EPI
== END 2021-09-14 17:50 | disposition home or self-care (01) ==
LOC: M.ERS 16:15
DX: S42.302A Unspecified fracture of shaft of humerus, left arm, initial encounter for closed fracture (principal); E11.9 Type 2 diabetes mellitus without complications; J44.9 Chronic obstructive pulmonary disease, unspecified; F41.9 Anxiety disorder, unspecified; Z79.899 Other long term (current) drug therapy; Z91.030 Bee allergy status; Z88.6 Allergy status to analgesic agent; Z88.8 Allergy status to other drugs, medicaments and biological substances; W17.0XXA Fall into well, initial encounter; Y93.89 Activity, other specified; Y92.89 Other specified places as the place of occurrence of the external cause; Y99.8 Other external cause status

== ENCOUNTER 2021-09-23 12:36 | Inpatient (IN) | payer OTHER, MEDICAID ==
[~2021-09-23] VITALS: Ht 154.9 cm; Wt 72.8 kg
--- NOTE | ~2021-09-23 | EMS ---
[address] [address] EMS Patient Care Report Name: BAUTISTA JIMÉNEZ Room: [address] IN [facility]#: [id number] Admission: 09/23/21 Attend Phys: Iris Day MD Discharge: Date of : 63 Report #: [id number] THIS REPORT FOR: //name// Report Transmitted: 09/23/2021 14:45 EMS Care Summary [facility] Incident [id number] @ 09/23/2021 11:50 Incident Location [address] [place] [address] ELOISA Villafana [address] Patient BAUTISTA JIMÉNEZ Female, 56 Years 1965 Patient Address [address] [place] [address] [place] [address] Patient History Chronic Obstructive Pulmonary Disease (COPD),Diabetes,Liver Failure, Patient Allergies Aspirin, Chief Complaint Leg pain Disposition Transported No Lights/[place] Dispatch Reason Falls Transported To [facility] Narrative [facility] was dispatched for a fall. Upon our arrival, pt was laying on the livingroom floor on her left side. Pt stated that her right leg gave out causing her to fall from standing. Pt stated her pain was an 8. Upon assessment of pt, an ashtray was noticed just a few inches from patients head. EMS [address] [address] EMS Patient Care Report Name: BAUTISTA JIMÉNEZ Room: [address] [place] [facility]#: [id number] Admission: 09/23/21 Attend Phys: Iris Day MD Discharge: Date of : 63 Report #: [id number] personnel stated, while moving the ashtray " Let me move this ashtray" and Patient stated that she was laying there smoking prior to our arrival. Pt complained of pain to her right midshaft femar. Patient rated her pain as an 8 with 10 being the worst. Patient was rolled over onto a hilda cnc operator machinist to assist EMS crew with moving patient to the stretcher with ease and comfort for the patient. After the move, Patient asked me to put a pillow under her uninjured leg which was the left leg. Pillow was applied as requested. Pt was placed in the ambulance and vitals were obtained. Pt had equal weld inspector and was able to apply pressure to my hands with her feet. Pt stated she had pain upon palpating her right leg. Pt denied pain to her head, arms, back, belly, hips and left leg, upon palpation. Pt stated she was on O2 at home, 2LPM, but does not use it much. Pt O2 was 86 % on room air. O2 NC was placed, which brought her sats up to 97-98%. Pt has history of being a heavy smoker and has stated she recently dropped down to 2 packs a day. during transport, Pt stated her pain was now a 6. Vitals were obtained, and Pt was monitored. Pt fell asleep during transport. If the ambulance hit a bump, pt would wake up and have a delayed response to her pain. I had asked Patient if she had taken anything for her pain to cause her sleepiness, patient denied. Pt was taken to [facility], and placed in room 15. Initial Vitals @12:15SpO2: 96, @11:58P: 104,R: 20,BP: 121/66,Pain: 8/10,GCS: 15,Glucose: -2,SpO2: 86,Revised Trauma: 12, @12:27R: 20,BP: 133/91,Pain: 6/10,GCS: 15,SpO2: 98,Revised Trauma: 12, Impression Extremity Pain Timeline 11:50,Call Received 11:50,Dispatched 11:52,En Route 11:54,Initial Responder On Scene 11:54,On Scene 11:55,At Patient 11:58,BP: 121/66 M,PULSE: 104,RR: 20 R,SPO2: 86 Ox,ETCO2: ,BG: -2,PAIN: 8,GCS: 15, 12:11,Depart Scene 12:15,BP: / M,PULSE: ,RR: R,SPO2: 96 Ox,ETCO2: ,BG: ,PAIN: ,GCS: , 12:27,BP: 133/91 M,PULSE: ,RR: 20 R,SPO2: 98 Ox,ETCO2: ,BG: ,PAIN: 6,GCS: 15, 12:31,At Destination 13:12,Call Closed 13:12,[place] [address] EMS Patient Care Report Name: CHHAYA JIMÉNEZNORASMITA Jacobo Room: [place] [address] ADM [place] ..#: [id number] Admission: 09/23/21 Attend Phys: Iris Day MD Discharge: Date of : 63 Report #: [id number] Disclaimer v1.1 Copyright 2020 [employer] This EMS Care Summary contains data elements from the applicable legal record (which may be displayed differently). It is designed to provide pertinent information for the following purposes: continuity of care, clinical quality, and state data reporting. The complete legal record is available to ED staff and administrators of the receiving hospital in [employer]'s Patient Tracker. All data is provided "as is."
[2021-09-23 12:39] VITALS: BP 146/82
[2021-09-23 13:39] LABS: HEMATOCRIT 27.2 % (37.0-47.0); HEMOGLOBIN 8.7 gm/dL (12.0-15.0); MCH 25.4 pg (26.0-34.0); MCHC 32.1 g/dL (28.0-37.0); MPV 7.4 fl. (7.2-11.1); NUCLEATED RBCS 0 /100WBC; PLATELET COUNT* 58 thou/uL (150-400); RBC 3.45 mil/uL (4.20-5.00); RDW-CV 18.6 % (10.5-14.5); WBC 3.1 thou/uL (4.0-11.0)
[2021-09-23 13:43] LABS: CALCIUM 8.2 mg/dL (8.5-10.1); CREATININE 0.9 mg/dL (0.6-1.3)
[2021-09-23 13:48] LABS: ALBUMIN 2.2 g/dL (3.4-5.0); TOTAL PROTEIN 7.3 g/dL (6.4-8.2)
[2021-09-23 14:28] LABS: ABSOLUTE LYMPHOCYTES 0.2 thou/uL (0.8-5.3); ABSOLUTE MONOCYTES 0.1 thou/uL (0.0-1.2); ABSOLUTE NEUTROPHILS 2.7 thou/uL (1.6-8.1); HYPOCHROMASIA Occasional; LARGE PLATELETS RARE; PLATELET ESTIMATE DECREASED
[2021-09-23 14:29] LABS: ANISOCYTOSIS 1+; MACROCYTES 1+
[2021-09-23 16:16] LABS: APTT 28.5 Seconds (25.0-31.3); INR 1.2; PROTIME 12.8 Seconds (9.20-11.50)
[2021-09-23 17:50] VITALS: BP 144/84
[2021-09-23 21:07] LABS: URINE BILIRUBIN NEGATIVE (Negative); URINE BLOOD NEGATIVE (Negative); URINE CLARITY CLEAR; URINE COLOR YELLOW; URINE GLUCOSE-RANDOM 1+ (Negative); URINE KETONES NEGATIVE (Negative); URINE LEUKOCYTES-REFLEX NEGATIVE (Negative); URINE NITRITE-REFLEX NEGATIVE (Negative); URINE PROTEIN NEGATIVE (Negative); URINE SPECIFIC GRAVITY 1.015 (1.005-1.030); URINE UROBILINOGEN 0.2 E.U./dl (0.2-1.0)
[2021-09-23 21:16] LABS: AMP/METHAMP Negative (Negative); BARBITURATES Negative (Negative); BENZODIAZEPINES Negative (Negative); COCAINE Negative (Negative); METHADONE Negative (Negative); OPIATES POSITIVE (Negative); PCP Negative (Negative); THC Negative (Negative)
[2021-09-23 22:00] VITALS: BP 150/86
[2021-09-24 00:30] VITALS: BP 140/89
[2021-09-24 01:30] VITALS: BP 109/73
[2021-09-24 08:00] VITALS: BP 144/75
[2021-09-24 09:40] LABS: HEMATOCRIT 23.4 % (37.0-47.0); HEMOGLOBIN 7.5 gm/dL (12.0-15.0); MCH 25.2 pg (26.0-34.0); MCHC 32.1 g/dL (28.0-37.0); MCV 78.5 fL (80.0-100.0); MPV 7.7 fl. (7.2-11.1); RBC 2.99 mil/uL (4.20-5.00); RDW-CV 18.4 % (10.5-14.5); WBC 4.1 thou/uL (4.0-11.0)
[2021-09-24 09:52] LABS: ALBUMIN 1.8 g/dL (3.4-5.0); CALCIUM 7.5 mg/dL (8.5-10.1); CREATININE 0.7 mg/dL (0.6-1.3); MAGNESIUM 1.6 mg/dL (1.8-2.4); POTASSIUM 4.1 mmol/L (3.5-5.1); TOTAL PROTEIN 6.3 g/dL (6.4-8.2)
--- NOTE | 2021-09-24 10:02 | EKG ---
[place] [address] ELECTROCARDIOGRAM REPORT Name: BAUTISTA JIMÉNEZ Room: [address] [place] .R.#: [id number] Admission: 09/23/21 Attend Phys: Iris Day, Discharge: Date of : 63 Date of Service: 09/23/21 1310 Report #: [id number] THIS REPORT FOR: //name// [facility] ED Test Date: 2021-09-23 Test Time: 13:10:19 Pat Name: BAUTISTA JIMÉNEZ Department: Room: [facility] Gender: F Spanish Translator: CAESY : 1965 Requested By: Rui Neely Order Number: [id number] MD: Silvestre Banks Measurements Intervals [place] Rate: 101 P: 70 [place]: 160 QRS: -9 QRSD: 92 T: 63 QT: 351 QTc: 455 Interpretive Statements Sinus tachycardia Probable left atrial enlargement Low voltage, extremity and precordial leads Minimal ST depression, anterolateral leads Compared to ECG 09/14/2021 17:12:41 Low QRS voltage now present ST (T wave) deviation now present Electronically Signed On 09-24-2021 10:02:05 CDT by Silvestre Banks [email or web address] <ELECTRONICALLY SIGNED> By: Krissy Banks MD, [facility] 09/24/211001 09 131 Krissy Banks MD, [facility] /EPI
[2021-09-24 16:30] VITALS: BP 142/96
[2021-09-24 20:00] VITALS: BP 155/81
[2021-09-25] VITALS (13 sets, daily range): BP systolic 108–173; BP diastolic 57–85
[2021-09-25 04:33] LABS: HEMATOCRIT 20.8 % (37.0-47.0); MCH 25.1 pg (26.0-34.0); MCHC 32.4 g/dL (28.0-37.0); MCV 77.4 fL (80.0-100.0); MPV 7.4 fl. (7.2-11.1); RBC 2.68 mil/uL (4.20-5.00); RDW-CV 18.6 % (10.5-14.5)
[2021-09-25 04:48] LABS: ALBUMIN 1.7 g/dL (3.4-5.0); CALCIUM 7.5 mg/dL (8.5-10.1); CREATININE 0.8 mg/dL (0.6-1.3); MAGNESIUM 1.7 mg/dL (1.8-2.4); POTASSIUM 3.5 mmol/L (3.5-5.1); TOTAL BILIRUBIN 0.8 mg/dL (<0.1-1.0); TOTAL PROTEIN 5.8 g/dL (6.4-8.2)
[2021-09-25 04:51] LABS: HEMOGLOBIN 6.7 gm/dL (12.0-15.0)
[2021-09-25 13:09] LABS: ABSOLUTE BASOPHILS 0.1 thou/uL (0.0-0.2); ABSOLUTE EOSINOPHILS 0.1 thou/uL (0.0-0.7); ABSOLUTE LYMPHOCYTES 1.2 thou/uL (0.8-5.3); ABSOLUTE MONOCYTES 0.2 thou/uL (0.0-1.2); ABSOLUTE NEUTROPHILS 3.2 thou/uL (1.6-8.1); BASOPHILS 1.5 %; EOSINOPHILS 2.2 %; HEMATOCRIT 21.9 % (37.0-47.0); HEMOGLOBIN 7.1 gm/dL (12.0-15.0); LYMPHOCYTES 25.6 %; MCH 25.5 pg (26.0-34.0); MCHC 32.7 g/dL (28.0-37.0); MCV 77.9 fL (80.0-100.0); MONOCYTES 4.7 %; MPV 7.4 fl. (7.2-11.1); NUCLEATED RBCS 0 /100WBC; PLATELET COUNT* 66 thou/uL (150-400); RBC 2.81 mil/uL (4.20-5.00); RDW-CV 18.7 % (10.5-14.5); WBC 4.8 thou/uL (4.0-11.0)
[2021-09-26 04:00] VITALS: BP 113/59
[2021-09-26 05:11] LABS: ALBUMIN 1.7 g/dL (3.4-5.0); CALCIUM 7.2 mg/dL (8.5-10.1); CREATININE 0.8 mg/dL (0.6-1.3); TOTAL BILIRUBIN 0.7 mg/dL (<0.1-1.0); TOTAL PROTEIN 5.1 g/dL (6.4-8.2)
[2021-09-26 06:04] LABS: MCH 26.9 pg (26.0-34.0); MCHC 33.6 g/dL (28.0-37.0); MPV 7.8 fl. (7.2-11.1); RBC 1.84 mil/uL (4.20-5.00); RDW-CV 18.4 % (10.5-14.5); WBC 4.2 thou/uL (4.0-11.0)
[2021-09-26 06:12] LABS: HEMATOCRIT 14.7 % (37.0-47.0); HEMOGLOBIN 4.9 gm/dL (12.0-15.0)
[2021-09-26 08:00] VITALS: BP 97/54
[2021-09-26 14:23] VITALS: BP 106/78; BP 108/56; BP 109/62; BP 110/58
[2021-09-26 20:00] VITALS: BP 105/75
[2021-09-26 21:25] LABS: HEMATOCRIT 22.2 % (37.0-47.0)
[2021-09-26 21:26] LABS: HEMOGLOBIN 7.2 gm/dL (12.0-15.0)
[2021-09-27] VITALS (8 sets, daily range): BP systolic 97–175; BP diastolic 33–82
[2021-09-27 06:05] LABS: HEMOGLOBIN 5.7 gm/dL (12.0-15.0)
[2021-09-27 06:06] LABS: HEMATOCRIT 17.2 % (37.0-47.0)
[2021-09-27 07:08] LABS: GLYCOHEMOGLOBIN (HGB A1C) 7.4 % (4.8-5.6)
[2021-09-27 19:43] LABS: HEMATOCRIT 28.2 % (37.0-47.0)
[2021-09-27 19:44] LABS: HEMOGLOBIN 9.6 gm/dL (12.0-15.0)
[2021-09-28 03:43] LABS: HEMATOCRIT 24.6 % (37.0-47.0); HEMOGLOBIN 8.3 gm/dL (12.0-15.0); MCH 27.8 pg (26.0-34.0); MCHC 33.5 g/dL (28.0-37.0); MCV 82.8 fL (80.0-100.0); MPV 7.3 fl. (7.2-11.1); RBC 2.97 mil/uL (4.20-5.00); RDW-CV 17.5 % (10.5-14.5); WBC 2.6 thou/uL (4.0-11.0)
[2021-09-28 04:00] VITALS: BP 123/87
[2021-09-28 04:09] LABS: ALBUMIN 1.8 g/dL (3.4-5.0); CALCIUM 7.2 mg/dL (8.5-10.1); CREATININE 0.7 mg/dL (0.6-1.3); MAGNESIUM 1.7 mg/dL (1.8-2.4); POTASSIUM 3.2 mmol/L (3.5-5.1); TOTAL BILIRUBIN 1.4 mg/dL (<0.1-1.0); TOTAL PROTEIN 5.8 g/dL (6.4-8.2)
[2021-09-28 04:25] LABS: APTT 31.3 Seconds (25.0-31.3); INR 1.2; PROTIME 12.7 Seconds (9.20-11.50)
[2021-09-28 08:00] VITALS: BP 137/74
[2021-09-28] MEDS ORDERED: ELIQUIS2.5 MG PO (11:41)
[2021-09-28] MEDS ORDERED: AUGMENTIN 875-1 EACH PO (11:42)
[2021-09-28 11:54] VITALS: BP 149/82
[2021-09-28 16:23] VITALS: BP 120/75
[2021-09-28 20:00] VITALS: BP 141/83
[2021-09-29 08:00] VITALS: BP 163/88
[2021-09-29] MEDS ORDERED: DILAUDID8 MG PO (16:37)
[2021-09-29] MEDS ORDERED: MS CONTIN 30 MG30 MG PO (16:37)
[2021-09-29 18:20] VITALS: BP 163/88
== END 2021-09-29 19:15 | disposition home or self-care (01) | DRG 480 ==
LOC: M.ERS 12:36 → M.TBA-ER 13:49 → M.ORTHSURG 13:49 → M.2W 22:11 → M.TBA-ER 23:38 → M.ORTHSURG 09-24 01:04 → M.3W 09-28 18:46
PROVIDERS: Anesthesiology; Family Medicine; ADMIT Internal Medicine; ATTEND Internal Medicine
PROC: 30233N1 Transfusion of Nonautologous Red Blood Cells into Peripheral Vein, Percutaneous Approach (ICD-10-PCS; principal; 2021-09-25)
PROC: 0QSB04Z Reposition Right Lower Femur with Internal Fixation Device, Open Approach (ICD-10-PCS; principal; 2021-09-25)
PROC: 30233R1 Transfusion of Nonautologous Platelets into Peripheral Vein, Percutaneous Approach (ICD-10-PCS; principal; 2021-09-25)
DX: M97.01XA Periprosthetic fracture around internal prosthetic right hip joint, initial encounter (principal); J15.6 Pneumonia due to other Gram-negative bacteria; I50.33 Acute on chronic diastolic (congestive) heart failure; S72.401A Unspecified fracture of lower end of right femur, initial encounter for closed fracture; S42.302A Unspecified fracture of shaft of humerus, left arm, initial encounter for closed fracture; J44.1 Chronic obstructive pulmonary disease with (acute) exacerbation; D62 Acute posthemorrhagic anemia; E11.9 Type 2 diabetes mellitus without complications; F31.9 Bipolar disorder, unspecified; F41.9 Anxiety disorder, unspecified; J30.2 Other seasonal allergic rhinitis; F17.210 Nicotine dependence, cigarettes, uncomplicated; K74.60 Unspecified cirrhosis of liver; F43.10 Post-traumatic stress disorder, unspecified; D69.6 Thrombocytopenia, unspecified; Z20.822 Contact with and (suspected) exposure to COVID-19; Z86.19 Personal history of other infectious and parasitic diseases; Z88.8 Allergy status to other drugs, medicaments and biological substances; W18.39XA Other fall on same level, initial encounter; Y93.89 Activity, other specified; Y92.89 Other specified places as the place of occurrence of the external cause; Y99.8 Other external cause status